=== PATIENT | female | born 1975 | race Caucasian/White ===

== ENCOUNTER 2021-12-27 09:54 | Outpatient (CLI) | payer MEDICARE, MEDICAID, SELFPAY | END 2021-12-27 09:55 | disposition home or self-care (01) | DX: H90.3 Sensorineural hearing loss, bilateral (principal) | CPT/HCPCS: 92557; 92567 ==

== ENCOUNTER 2025-01-06 07:59 | Outpatient (CLI) | payer MEDICARE, MEDICAID, SELFPAY | END 2025-01-06 08:00 | disposition home or self-care (01) | LOC: ANHBWCAUD 08:00 | DX: H61.23 Impacted cerumen, bilateral (principal); H74.8X1 Other specified disorders of right middle ear and mastoid | CPT/HCPCS: 92567 ==

== ENCOUNTER 2025-04-07 09:08 | Outpatient (CLI) | payer MEDICARE, MEDICAID, SELFPAY ==
--- OUTSIDE RECORDS SUMMARY | 2025-04-07 10:13 | XMS_ITS | Encounter Summary ---
Author Organization [facility] Address [address] [place] [address] Phone Care Team Providers Care Tie Knitter Helper Name Role Phone Jitendra Navarro MD Unavailable Guillermo Burnette MD Primary Care Provider Angelica Laughlin MD Unavailable [phone] Encounter Details Date Type Department Care Team (Late st Contact Info) Description 11/09/2021 [facility] 1 [place] [phone] Cornell Ge MD 4 [facility] [address] [place] [address] Encounter for screening for COVID-19 Social History Tobacco Use Types Packs/Day Years Used Date Smoking Tobacco: Never Assessed Comments No Sex and Gender Information Value Date Recorded Sex Assigned at Not on file Legal Sex Female 11:26 AM CDT Gender Identity Not on file Sexual Orientation Not on file documented as of this encounter Plan of Treatment Upcoming Encounters Date Type Department Care Team (Late st Contact Info) Description 09/30/2025 10:30 AM CDT Office Visit [facility] Medical Group - Ear, Nose & Throat - [place] [address] [place] [address] Angelica Laughlin MD #2 [facility] [place] [facility] [address] [place] [address] documented as of this encounter Procedures Procedure Name Priority Date/Time Associated Diagnosis Comments SARS-COV-2 BY MOLECULAR Routine 11/09/2021 8:15 AM CDT Encounter for screening for COVID-19 documented in this encounter Results * SARS-COV-2 BY MOLECULAR (11/09/2021 8:15 AM CDT) SARSCOV2 NOT DETECTED (Referen ce Range for this test is Not Detected ) [facility] THERMOFISHER FAST DX 11/10/2021 12:49 AM CDT [facility] Comment:This test was perfor med by a RT-PCR method. Other Venipuncture / Unknown 11/09/2021 8:15 AM CDT 11/09/2021 12:52 PM CDT Narrative [facility] - 11/10/2021 12:49 AM CDT Authorized Fact Sheets about this test for providers and patients are available at: https://www.fda.gov/medical-devices/yxdisdftk-gkykqdkoci-ixivgmc-devices/emergen cy-us e-authorizations us Cornell Ge MD MICROBIOLOGY - GENERAL ORDERAB LES Final Result [facility] [address] [place] [address], documented in this encounter Visit Diagnoses Diagnosis Encounter for screening for COVID-19 documented in this encounter Additional Health Concerns Infection Onset Date Last Indicated Resolved Time COVID - 19 10/19/2021 11/23/2021 11/24/2021 6:49 AM CDT COVID - 19 Confirmed 11/23/2021 11/23/202112/13/ 022 12:16 AM CDT COVID - 19 02/22/2022 03/08/2022 03/18/2022 12:1 6 AM CDT documented as of this encounter Care Teams Tie Knitter Helper Relationship Specialty Start Date End Date Guillermo Burnette MD [address] [place] [address] PCP - General Internal Medicine 05/05/20 Jitendra Navarro MD Consulting Physician Neurology 03/23/16 04/24/24 Angelica Laughlin MD #2 [facility] [address] [phone] Consulting Physician Otolaryngology 04/01/25 documented as of this encounter
--- OUTSIDE RECORDS SUMMARY | 2025-04-07 10:13 | XMS_ITS | Encounter Summary ---
Author Organization [facility] Address [address] [place] [address] Phone Care Team Providers Care Gang Boss Name Role Phone Jitenrda Navarro MD Unavailable Guillermo Burnetet MD Primary Care Provider Angelica Laughlin MD Unavailable [phone] Encounter Details Date Type Department Care Team (Late st Contact Info) Description 04/06/2021 [facility] 1 [place] [phone] Cornell Ge MD 4 [facility] [address] [facility] [address] Social History Tobacco Use Types Packs/Day Years [...] Description 09/30/2025 10:30 AM CDT Office Visit [facility] Medical Group - Ear, Nose & Throat - [place] [address] [place] [address] Angelica Laughlin MD #2 [facility] [address] [facility] [address] [place] [phone] documented as of this encounter Procedures Procedure Name Priority Date/Time Associated Diagnosis Comments SARS-COV-2 BY MOLECULAR Routine 04/06/2021 8:11 AM CDT documented in this encounter Results * SARS-COV-2 BY MOLECULAR (04/06/2021 8:11 AM CDT) SARSCOV2 NOT DETECTED (Referen ce Range for this test is Not Detected ) [facility] THERMOFISHER FAST DX 04/06/2021 5:44 PM CDT [facility] Comment:This test was perfor med by a RT-PCR method. Other Non-Phlebotomy Collection / Unknown 04/06/2021 8:11 AM CDT 04/06/2021 10:52 AM CDT Narrative [facility] - 04/06/2021 5:44 PM CDT Authorized Fact Sheets about this test for providers and patients are available at: https://www.fda.gov/medical-devices/lnqtagztx-rwzaccytco-fkoaeif-devices/emergen -us e-authorizations us Cornell Ge MD MICROBIOLOGY - GENERAL ORDERAB LES Final Result [facility] [address] [place] [address], documented in this encounter Visit Diagnoses Not on filedocumented in this encounter Additional Health Concerns Infection Onset Date Last Indicated Resolved Time COVID - 19 03/09/2021 05/25/2021 06/14/2021 12:1 6 AM NUCLEAR PHYSICIAN COVID - 19 06/29/2021 09/14/2021 10/04/2021 12:1 6 AM CDT COVID - 19 10/19/2021 11/23/2021 11/24/2021 6:49 AM CDT COVID - 19 Confirmed 11/23/2021 11/23/2021 022 12:16 AM CDT COVID - 19 02/22/2022 03/08/2022 03/18/2022 12:1 6 AM CDT documented as of this encounter Care Teams Gang Boss Relationship Specialty Start Date End Date Guillermo Burnette MD [address] [facility] [address] [place] [address] PCP - General Internal Medicine 05/05/20 Jitendra Navarro MD Consulting Physician Neurology 03/23/16 04/24/24 Angelica Laughlin MD #[address] [address] Consulting Physician Otolaryngology 04/01/25 documented as of this encounter
--- OUTSIDE RECORDS SUMMARY | 2025-04-07 10:13 | XMS_ITS | Encounter Summary ---
Author Organization [facility] Address [address] [place] [address] Phone Care Team Providers Care Quality Assurance Calibrator Name Role Phone Guillermo Burnette MD Primary Care Provider [phone] Angelica Laughlin MD Unavailable [phone] Encounter Details Date Type Department Care Team (Late Contact Info) Description 11/19/2024 [facility] 1 [place] [address] Guillermo Burnette MD [address] [facility] [address] [place] [address] Hypothyroidism, unspecified; Mild intellectual disabilities; Major depressive disorder, single episode, unspecified Social History Tobacco Use Types Packs/Day Years Used Date Smoking Tobacco: Never Smokeless Tobacco: Never Alcohol Use Standard Drinks/Week Comments Never 0 (1 standard drink = 0.6 oz pur e alcohol) Sexually Active Control Partners Comments Never Comments No Sex and Gender Information Value Date Recorded Sex Assigned at Not on file Legal Sex Female 11:26 AM CDT Gender Identity Not on file Sexual Orientation Not on file documented as of this encounter Plan of Treatment Upcoming Encounters Date Type Department Care Team (Late Contact Info) Description 09/30/2025 10:30 AM CDT Office Visit [facility] Medical Group - Ear, Nose & Throat - [place] #[address] [place] [address] Angelica Laughlin MD #[address] [phone] documented as of this encounter Procedures Procedure Name Priority Date/Time Associated Diagnosis Comments VITAMIN D, 25 HYDROXY TOTAL Routine 11/19/2024 6:35 AM CDT Hypothyroidism, unspecified Mild intellectual disabilities Major depressive disorder, single episode, unspecified CBC WITH AUTO DIFFERENTIAL Routine 11/19/2024 6:35 AM CDT Hypothyroidism, unspecified Mild intellectual disabilities Major depressive disorder, single episode, unspecified THYROXINE (T4) TOTAL Routine 11/19/2024 6:35 AM CDT Hypothyroidism, unspecified Mild intellectual disabilities Major depressive disorder, single episode, unspecified THYROID STIMULATING HORMONE (TSH) Routine 11/19/2024 6:35 AM CDT Hypothyroidism, unspecified Mild intellectual disabilities Major depressive disorder, single episode, unspecified LIPID PANEL Routine 11/19/2024 6:35 AM CDT Hypothyroidism, unspecified Mild intellectual disabilities Major depressive disorder, single episode, unspecified CMP (COMPREHENSIVE METABOLIC PANEL) Routine 11/19/2024 6:35 AM CDT Hypothyroidism, unspecified Mild intellectual disabilities Major depressive disorder, single episode, unspecified COMPLETE BLOOD COUNT (CBC) WITH DIFF Routine 11/19/2024 6:35 AM CDT Hypothyroidism, unspecified Mild intellectual disabilities Major depressive disorder, single episode, unspecified documented in this encounter Results * (ABNORMAL) CBC WITH AUTO DIFFERENTIAL (11/19/2024 6:35 AM CDT) WBC 8.39 4.00 - 12.00 10(3)/mcL 11/19/2024 7:58 AM CDT [facility] RBC 4.79 3.80 - 5.30 10(6)/mcL 11/19/2024 7:58 AM CDT [facility] HEMOGLOBIN (HGB) 14.7 12.0 - 15.8 g/dL 11/19/2024 7:58 AM CDT [facility] HEMATOCRIT (HCT) 44.5 36.0 - 47.0 % 11/19/2024 7:58 AM CDT [facility] MCV 92.9 82.0 - 96.0 fL 11/19/2024 7:58 AM CDT [facility] MCH 30.7 26.0 - 34.0 pg 11/19/2024 7:58 AM CDT [facility] MCHC 33.0 31.0 - 36.0 g/dL 11/19/2024 7:58 AM CDT [facility] PLATELET COUNT 245 140 - 440 10(3)/mcL 11/19/2024 7:58 AM CDT [facility] RDW 10.8(L) 11.8 - 15.5 % 11/19/2024 7:58 AM CDT [facility] MPV 12.4 9.7 - 12.4 fL 11/19/2024 7:58 AM CDT [facility] NEUTROPHILS 56.6 47.0 - 73.0 % 11/19/2024 7:58 AM CDT [facility] LYMPHOCYTES 33.7 18.0 - 42.0 % 11/19/2024 7:58 AM CDT [facility] MONOCYTES 7.4 4.0 - 12.0 % 11/19/2024 7:58 AM CDT [facility] EOSINOPHILS 1.7 0.0 - 5.0 % 11/19/2024 7:58 AM CDT [facility] BASOPHILS 0.6 0.0 - 1.0 % 11/19/2024 7:58 AM CDT [facility] ABSOLUTE NEUTROPHILS 4.75 1.60 - 7.70 10(3)/mcL 11/19/2024 7:58 AM CDT [facility] ABSOLUTE LYMPHOCYTES 2.83 1.30 - 3.20 10(3)/mcL 11/19/2024 7:58 AM CDT [facility] ABSOLUTE MONOCYTES 0.62 0.20 - 1.00 10(3)/mcL 11/19/2024 7:58 AM CDT [facility] ABSOLUTE EOSINOPHIL 0.14 0.00 - 0.40 10(3)/mcL 11/19/2024 7:58 AM CDT [facility] ABSOLUTE BASOPHILS 0.05 0.00 - 0.10 10(3)/mcL 11/19/2024 7:58 AM CDT [facility] NRBC PER 100 WBC 0 11/20/19 25 7:58 AM CDT [facility] Blood Venipuncture / Unknown 11/19/2024 6:35 AM CDT 11/19/2024 7:45 AM CDT us Guillermo Burnette MD HEMATOLOGY ORDERABLES Final Res ult [facility] #[address] [place] [address] * VITAMIN D, 25 HYDROXY TOTAL (11/19/2024 6:35 AM CDT) VITAMIN D, 25 HYDROX 23.1 ng/mL 11/19/2024 8:49 AM CDT [facility] Blood Venipuncture / Unknown 11/19/2024 6:35 AM CDT 11/19/2024 7:45 AM CDT Narrative [facility] - 11/19/2024 8:49 AM CDT Published reference ranges for Vitamin D vary depending on time and place and method of testing, and on patient's age, sex, ethnicity and levels of other measured analytes such as parathormone, calcium and phosphorus. The result should be evaluated in conjunction with clinical findings and suspicions. [place] [facility] Clinical Practice Guidelines: Status Vitamin D levels (ng/mL) Deficient <=20 At risk of inadequacy 21-29 Sufficient 30-100 Centers of Disease Control and Prevention Guidelines: Status Vitamin D levels (ng/mL) Deficient <13 At risk of inadequacy 13-19 Sufficient 20-50 Possibly harmful >50 References: [place] [facility], 2010 Dietary reference intakes for calcium and vitamin D. García [place]: The National Academies Press. Shy M, Noel N, Vlad GUTIERREZ, et al., Evaluation, treatment, and prevention of Vitamin D deficiency: an Endocrinology Clinical Practice Guideline. JCEM 2011 96: 7 1755-1015. Sonali Robertson, Filippo Kemp, Bhavik D, et al., Vitamin D Status: [place], 3298-8472, [facility] data brief, no. 59, MD Cristofer: [facility] for Health Statistics. 2011. Guillermo Burnette MD CHEMISTRY ORDERABLES Final Resu lt Performing Organization Address City/[facility] Co de Phone Number [facility] [address] [place] [address] * THYROID STIMULATING HORMONE (TSH) (11/19/2024 6:35 AM CDT) TSH 3.387 0.300 - 5.000 mIU/L 11/19/2024 8:54 AM CDT [facility] Blood Venipuncture / Unknown 11/19/2024 6:35 AM CDT 11/19/2024 7:45 AM CDT Guillermo Burnette MD CHEMISTRY ORDERABLES Final Resu lt Performing Organization Address [facility] Co de Phone Number [facility] [address] [place] [address] * THYROXINE (T4) TOTAL (11/19/2024 6:35 AM CDT) T4 7.7 5.0 - 13.0 mcg/dL 11/19/2024 8:54 AM CDT [facility] Blood Venipuncture / Unknown 11/19/2024 6:35 AM CDT 11/19/2024 7:45 AM CDT Guillermo Burnette MD CHEMISTRY ORDERABLES Final Resu lt Performing Organization Address City/[facility]/ZIP Co de Phone Number [facility] [address] [place] [address] * (ABNORMAL) LIPID PANEL (11/19/2024 6:35 AM CDT) CHOLESTEROL 197 <200 mg/dL 11/19/2024 8:36 AM CDT [facility] TRIGLYCERIDES 82 <150 mg/dL 11/19/2024 8:36 AM CDT [facility] HDL CHOLESTEROL 56 >40 mg/dL 8:36 AM CDT [facility] LDL 125 <130 mg/dL 11/19/2024 8:36 AM CDT [facility] VLDL 16 10 - 50 mg/dL 11/19/2024 8:36 AM CDT [facility] CHOL/HDL RATIO 3.5 0.0 - 4.4 11/19/2024 8:36 AM CDT [facility] NON-HDL CHOLESTEROL 141(H) <130 mg/dL 11/19/2024 8:36 AM CDT [facility] Blood Venipuncture / Unknown 11/19/2024 6:35 AM CDT 11/19/2024 7:45 AM CDT us Guillermo Burnette MD CHEMISTRY ORDERABLES Final Resu lt Performing Organization Address [facility]/ZIP Co de Phone Number [facility] [address] [place] [address] * (ABNORMAL) CMP (COMPREHENSIVE METABOLIC PANEL) (11/19/2024 6:35 AM CDT) SODIUM 140 136 - 145 mmol/L 11/19/2024 8:36 AM CDT [facility] POTASSIUM 4.2 3.5 - 5.1 mmol/L 11/19/2024 8:36 AM CDT [facility] CHLORIDE 107 98 - 107 mmol/L 11/19/2024 8:36 AM CDT [facility] CO2, VENOUS 23 22 - 30 mmol/L 11/19/2024 8:36 AM CDT [facility] ANION GAP 14.2 <18.0 mmol/L 11/19/2024 8:36 AM CDT [facility] GLUCOSE 86 70 - 99 mg/dL 11/19/2024 8:36 AM CDT [facility] BUN 15 5 - 18 mg/dL 11/19/2024 8:36 AM CDT [facility] CREATININE, BLOOD 0.67 0.60 - 1.00 mg/dL 11/19/2024 8:36 AM CDT [facility] BUN/CREATININE RATIO 22(H) 12 - 20 ratio 11/19/2024 8:36 AM T [facility] TOTAL PROTEIN 8.2(H) 6.0 - 8.0 g/dL 11/19/2024 8:36 AM CDT [facility] ALBUMIN 4.1 3.5 - 5.0 g/dL 11/19/2024 8:36 AM [facility] A/G RATIO 1.0 1.0 - 2.2 11/19/2024 8:36 AM T [facility] CALCIUM 9.1 8.7 - 10.5 mg/dL 11/19/2024 8:36 AM [facility] T BILI 0.5 0.2 - 1.2 mg/dL 11/19/2024 8:36 AM T [facility] SGOT (AST) 22 <43 U/L 11/19/2024 8:36 AM CDT [facility] SGPT (ALT) 17 <56 U/L 11/19/2024 8:36 AM T [facility] ALKALINE PHOSPHATASE 90 40 - 150 U/L 11/19/2024 8:36 AM [facility] GFR, ESTIMATED >60 >=60 11/19/2024 8:36 AM T [facility] Comment: Creatinine Clearance is the preferred criteria for selecting drug dose adjustments in renally impaired patients. The GFR is provided as additional pertinent clinical information. GFR is reported in mL/min/1.73 sq m. Calculation based on the Chronic Kidney Disease Epidemiology Collaboration (CKD- EPI) equation refit without adjustment for race. GFR, EST. >60 >=60 025 8:36 AM CDT [facility] GFR, EST. NONAFRICAN >60 >=60 11/19/2024 8:36 AM CDT [facility] Blood Venipuncture / Unknown 11/19/2024 6:35 AM CDT 11/19/2024 7:45 AM CDT us Guillermo Burnette MD CHEMISTRY ORDERABLES Final Resu lt [facility] [address] [place] [address] documented in this encounter Visit Diagnoses Diagnosis Hypothyroidism, unspecified Mild intellectual disabilities Major depressive disorder, single episode, unspecified documented in this encounter Care Teams Quality Assurance Calibrator Relationship Specialty Start Date End Date Guillermo Burnette MD [address] [facility] [address] [place] [address] PCP - General Internal Medicine 05/05/20 Angelica Laughlin MD #2 [facility] [address] [place] [address] Consulting Physician Otolaryngology 04/01/25 documented as of this encounter
--- OUTSIDE RECORDS SUMMARY | 2025-04-07 10:13 | XMS_ITS | Encounter Summary ---
Author Organization [facility] Address [address] [place] [address] Phone Care Team Providers Care Automatic Presser Name Role Phone Jitendra Navarro MD Unavailable Guillermo Burnette MD Primary Care Provider [phone] Angelica Laughlin MD Unavailable [phone] Encounter Details Date Type Department Care Team (Late st Contact Info) Description 05/25/2021 Lab Requisition [facility] Services 1 [place] [phone] Cornell Ge MD 4 [facility] [address] [place] [address] Encounter for screening for COVID-19 Social History [...] Description 09/30/2025 10:30 AM CDT Office Visit [facility] Medical Group - Ear, Nose & Throat - [place] [address] [place] [phone] Angelica Laughlin MD [address] [place] [place] [phone] documented as of this encounter Procedures Procedure Name Priority Date/Time Associated Diagnosis Comments SARS-COV-2 BY MOLECULAR Routine 05/25/2021 8:10 AM SENIOR MANAGER [employer] Encounter for screening for COVID-19 documented in this encounter Results * SARS-COV-2 BY MOLECULAR (05/25/2021 8:10 AM SENIOR MANAGER [employer]QU[employer]) SARSCOV2 NOT DETECTED (Referen ce Range for this test is Not Detected ) [facility] THERMOFISHER FAST DX 05/26/2021 5:59 PM SENIOR MANAGER [facility]QU[facility]ITIONS [facility] Comment:This test was perfor med by a RT-PCR method. Other No Phlebotomy Charged / Unknown 05/25/2021 8:10 AM SENIOR MANAGER [employer]ITION[employer] 05/25/2021 10:54 AM SENIOR MANAGER [employer]ITIONS Narrative [facility] 05/26/[facility]21 5:59 PM SENIOR MANAGER [employer]ITIONS Authorized Fact Sheets about this test for providers and patients are available at: https://www.fda.gov/medical-devices/qgbfwuwve-zzksyxsbfs-bcfjzpq-devices/emergen cy-us e-authorizations us Cornell Ge MD MICROBIOLOGY - GENERAL ORDERAB LES Final Result [facility] [address] [place] [address], documented in this encounter Visit Diagnoses Diagnosis Encounter for screening for COVID-19 documented in this encounter Additional Health Concerns Infection Onset Date Last Indicated Resolved Time COVID - 19 03/09/2021 05/25/2021 06/14/2021 12:1 6 AM SENIOR MANAGER [employer] COVID - 19 06/29/2021 09/14/2021 10/04/2021 12:1 6 AM CDT COVID - 19 10/19/2021 11/23/2021 11/24/2021 6:49 AM CDT COVID - 19 Confirmed 11/23/2021 11/23/2021 022 12:16 AM CDT COVID - 19 02/22/2022 03/08/2022 03/18/2022 12:1 6 AM CDT documented as of this encounter Care Teams Automatic Presser Relationship Specialty Start Date End Date Guillermo Burnette MD [address] [facility] [address] [place] [address] PCP - General Internal Medicine 05/05/20 Jitendra Navarro MD Consulting Physician Neurology 03/23/16 04/24/24 Angelica Laughlin MD #[address] [phone] Consulting Physician Otolaryngology 04/01/25 documented as of this encounter
--- OUTSIDE RECORDS SUMMARY | 2025-04-07 10:13 | XMS_ITS | Clinical Summary ---
Author Organization [facility] Address [address] [place] [address] Care Team Providers Care Senior Java Engineer Name Role Phone Guillermo Burnette MD Primary Care Provider [phone] Angelica Laughlin MD Unavailable [phone] Allergies No known active allergies Medications dextromethorph an-guaiFENesin (Robafen DM) 10-100 MG/5ML Syrup Take 10 mL by mouth every 4 hours as needed for Cough. 8 Active docusate sodium 100 MG Capsule Take 100 mg by mouth daily. 8 Active Multivitamin Tablet Take 1 Tablet by mouth daily. 4 Active Stimulant Laxative 8.6-50 MG Tablet Take 2 Tablets by mouth daily. 4 Active fluconazole (DIFLUCAN) 200 MG Tablet Fluconazole 200 MG Oral Tablet QTY: 0 tablet Days: 0 Refills: 0 Written: 10/18/21 Patient Instructions: once a month 2 Active acetaminophen (Tylenol) 325 MG Tablet Take 325 mg by mouth every 4 hours as needed for Mild or more severe pain or Fever. 8 Active magnesium hydroxide ([employer] Milk of Magnesia) 400 MG/5ML Suspension 30 mL every 72 hours as needed for Constipation - 1st line. 8 Active Neomycin-Bacit racin-Polymyxi n (HCA TRIPLE ANTIBIOTIC OINTMENT EX) by Apply externally route every 8 hours as needed for Other (skin wounds, max 3 doses daily). Active Phenylephrine- Mineral Oil-Pet (Hemorrhoidal) 0.25-14-74.9 % Ointment by Rectal route 2 times daily as needed for Other (hemorrhoids, max dose 2 in 24 hrs). Active apixaban (ELIQUIS) 5 MG Tablet 2 tab twice daily for 7 days, then 1 tablet twice daily 9 025 Discontin ued(Med List Clean Up) risperiDONE (RISPERDAL) 0.5 MG Tablet Take 0.5 mg by mouth. 025 Discontin ued(Med List Clean Up) guaiFENesin 200 MG/5ML Liquid take 5 milliliter (200MG) by oral route every 4 hours as needed 2 025 Discontin ued(Error ) Active Problems No known active problems Encounters Date Type Department Care Team Description 04/01/2025 10:45 AM CDT Office Visit [facility] - [place] [address] [place] [address] Angelica Laughlin MD Impacted cerumen of both ears (Primary Dx) Discharge Disposition: Discharged to home or Selfcare 04/01/2025 Travel from Last 3 Months Immunizations Immunization Administration Dates Next Due Covid-19, Mrna, Lnp-s, Pf, 30 Mcg/0.3 Ml Dose (P fizer) 04/22/2021 Social History Tobacco Use Types Packs/Day Years Used Date Smoking Tobacco: Never Smokeless Tobacco: Never Tobacco Cessation:Counseling Given: Not Answered Alcohol Use Standard Drinks/Week Comments Never 0 (1 standard drink = 0.6 oz pur e alcohol) Sexually Active Control Partners Comments Never Comments No Sex and Gender Information Value Date Recorded Sex Assigned at Not on file Legal Sex Female 11:26 AM CDT Gender Identity Not on file Sexual Orientation Not on file Last Filed Vital Signs Vital Sign Reading Time Taken Comments Blood Pressure 120/78 04/01/2025 10:53 AM CDT Pulse 60 04/01/2025 10:53 AM CDT Temperature 36.7 C (98 F) 04/01/2025 10:53 AM CDT Respiratory Rate 18 04/01/2025 10:53 AM CDT Oxygen Saturation 93% 04/01/2025 10:53 AM CDT Inhaled Oxygen Concentration - - Weight 76.2 kg (168 lb) 04/01/2025 10:53 AM CDT Height 160 cm (5' 3) 04/01/2025 10:53 AM CDT Body Mass Index 29.76 04/01/2025 10:53 AM CDT Plan of Treatment Upcoming Encounters Date Type Department Care Team (Late st Contact Info) Description 09/30/2025 10:30 AM CDT [facility] Visit [facility] - [place] [address] [address] Angelica Laughlin MD [address] [place] [address] [address] Health Maintenance Due Date Last Done Comments Hepatitis C Virus (HCV) Screening 1975 TdaP Immunization 1975 Pap Smear 1996 Medicare Initial AWV [id number] 02/16/1998 Cervical Cancer Screening (CCS) 2005 HPV/Cotest 2005 Hepatitis B Immunization (2 of 3 - 19+ 3-dose series) 02/28/2006 01/31/2006 Cologuard 2020 Immunochemical Fecal Occult Blood 2020 Influenza Immunization (#1) 02/16/202504/18, 05/01/2023, 03/30/2021, Additional history exists SARS-COV-2 Immunization ( season) 2025 04/22/2024, 04/22/2021, 08/20/2020, Additional history exists Mammogram 07/31/2025 07/31/2024, 07/19, 07/30/2023, Additional history exists Colonoscopy 08/11/2034 08/11/2024 Colorectal Cancer Screening 08/11/2034 Respiratory Syncytial Virus (RSV) Immunization (Adult) (1 - 1-dose 75+ series) 2050 DTaP/Tdap/Td Immunization Discontinued 01/31/2006, Pneumococcal Immunization Combined Aged Out 01/27/2011, 01/21/2006 No longer eligibl e based on patient's age to complete this topic Discussion re Starting/Frequency of Mammograms Completed 07/31/2024, 07/30/2023, 05/16/2021, Additional history exists Human Papillomavirus (HPV) Immunization Aged Out No longer eligible based on patient's age to complete this topic Meningococcal Immunization (ACWY) Aged Out No longer eligible based on patient's age to complete this topic Rotavirus Immunization Aged Out No lo nger eligible based on patient's age to complete this topic Procedures Procedure Name Priority Date/Time Associated Diagnosis Comments REMOVE IMPACTED EAR WAX VIA INSTRUMENT BILAT Routine 04/01/2025 10:45 AM CDT Impacted cerumen of both ears ZOEY SCREENING BILATERAL DIGITAL W CAD Routine 07/31/2024 9:14 AM TEMPLATE FITTER Breast cancer screening by mammogram from Last 3 Months or Most Recently Relevant to Health Maintenance Results * REMOVE IMPACTED EAR WAX VIA INSTRUMENT BILAT (04/01/2025 10:45 AM CDT) Narrative Angelica Laughlin MD - 04/01/2025 10:45 AM CDT Angelica Laughlin MD 04/01/2025 11:17 AM PROCEDURE PERFORMED: Removal of bilateral Impacted Cerumen Risks, benefits and alternatives were discussed with the patient. Specific risks include irritation of the canal, bleeding, infection or need for additional procedures. Benefits include improvement of ear canal obstruction, and alternative includes observation or vnpi-odj-oniamch remedies at home if they are candidate. After obtaining informed consent, the patient was placed in a semi-reclining position in the exam chair. The operative otoscope was used to visualize the both ear canals . Impacted/obstructing cerumen was noted in both sides . Cerumen removal was accomplished using suction The left tympanic membrane was visualized and noted to be intact and normal. The right tympanic membrane was visualized and noted to be intact and normal. The patient tolerated this well without complications. Angelica Laughlin MD PROCEDURE/MINOR SURGICAL ORDERA BLES Final Result * ZOEY SCREENING BILATERAL DIGITAL W CAD (07/31/2024 9:14 AM TEMPLATE FITTER) Anatomical Region Laterality Modality breast Bilateral Mammography 07/31/2024 9:25 AM TEMPLATE FITTER Narrative 08/01/2024 1:17 PM TEMPLATE FITTER - OZEY SCREENING BILATERAL DIGITAL W CAD BILATERAL DIGITAL SCREENING MAMMOGRAM WITH CAD WITH MEDIOLATERAL OBLIQUE CRANIOCAUDAL: 07/31/2024 The study was acquired using digital technology and interpreted from soft copy. Current study was also evaluated with ICAD version 7.2. CLINICAL: Routine screening. Patient has no complaints. Patient is from a alf. Exam performed in 2D due to patient tremors. No personal history of cancer. Family history of breast cancer unknown. COMPARISONS: Comparison is made to exams dated: 05/05/2020, 05/16/2021, and 07/30/2023 [facility]. BREAST TISSUE:There are scattered areas of fibroglandular density. FINDINGS: No significant masses, calcifications, or other findings are seen in either breast. There has been no significant interval change. IMPRESSION: NEGATIVE There is no mammographic evidence of malignancy. A 1 year screening mammogram is recommended. A letter will be sent to the patient with these results. The patient will be entered into a reminder system with a target due date of 1 year for her next screening exam. Electronically signed by: Lizbet sam/chris:07/31/2024 17:15:35 Parachute Supervisor(s): RT Trisha(R)(M), [facility] letter sent: Normal Exam Reading location: [place] Mammogram BI-RADS: Category 1: Negative Procedure Note Lizbet Bell MD - 08/01/2024 - ZOEY SCREENING BILATERAL DIGITAL W CAD BILATERAL DIGITAL SCREENING MAMMOGRAM WITH CAD WITH MEDIOLATERAL OBLIQUE CRANIOCAUDAL: 07/31/2024 The study was acquired using digital technology and interpreted from soft copy. Current study was also evaluated with ICAD version 7.2. CLINICAL: Routine screening. Patient has no complaints. Patient is from a alf. Exam performed in 2D due to patient tremors. No personal history of cancer. Family history of breast cancer unknown. COMPARISONS: Comparison is made to exams dated: 05/05/2020, 05/16/2021, and 07/30/2023 [facility]. BREAST TISSUE:There are scattered areas of fibroglandular density. FINDINGS: No significant masses, calcifications, or other findings are seen in either breast. There has been no significant interval change. IMPRESSION: NEGATIVE There is no mammographic evidence of malignancy. A 1 year screening mammogram is recommended. A letter will be sent to the patient with these results. The patient will be entered into a reminder system with a target due date of 1 year for her next screening exam. Electronically signed by: Lizbet sam/chris:07/31/2024 17:15:35 Parachute Supervisor(s): India Wise RT(R)(M), [facility] letter sent: Normal Exam Reading location: [place] Mammogram BI-RADS: Category 1: Negative us Guillermo Burnette MD IMG MAMMO ORDERABLES Final Resu lt from Last 3 Months or Most Recently Relevant to Health Maintenance Insurance MEDICARE [place]ICAID [place] Care Teams Senior Java Engineer Relationship Specialty Start Date End Date Guillermo Burnette MD [address] [place] [address] PCP - General Internal Medicine 05/05/20 Angelica Laughlin MD [address]2 [facility] [address] [place] [phone] Consulting Physician Otolaryngology 04/01/25
--- OUTSIDE RECORDS SUMMARY | 2025-04-07 10:13 | XMS_ITS | Encounter Summary ---
Author Organization [facility] Address [address] [place] [address] Phone Care Team Providers Care Jackaroo Name Role Phone Jitendra Navarro MD Unavailable Guillermo Burnette MD Primary Care Provider [phone] Angelica Laughlin MD Unavailable [phone] Encounter Details Date Type Department Care Team (Late st Contact Info) Description 03/16/2021 [facility] [address] [place] [phone] Cornell Ge MD 4 [facility] [address] [place] [address] Encounter for screening for COVID-19 Social History [...] Description 09/30/2025 10:30 AM CDT Office Visit [facility] - Ear, Nose & Throat - [place] [address] [place] [address] Angelica Laughlin MD #2 [facility] [address] [place] [phone] documented as of this encounter Procedures Procedure Name Priority Date/Time Associated Diagnosis Comments SARS-COV-2 BY MOLECULAR Routine 03/16/2021 7:20 AM CDT Encounter for screening for COVID-19 documented in this encounter Results * SARS-COV-2 BY MOLECULAR (03/16/2021 7:20 AM CDT) SARSCOV2 NOT DETECTED (Referen ce Range for this test is Not Detected ) [facility] THERMOFISHER FAST DX 03/17/2021 5:10 AM CDT [facility] Comment:This test was perfor med by a RT-PCR method. Other No Phlebotomy Charged / Unknown 03/16/2021 7:20 AM CDT 03/16/2021 10:56 AM CDT Narrative [facility] - 03/17/2021 5:10 AM CDT Authorized Fact Sheets about this test for providers and patients are available at: https://www.fda.gov/medical-devices/rsetqrion-evihktqgrt-qqzmkzu-devices/emergen cy-us e-authorizations us Cornell Ge MD MICROBIOLOGY - GENERAL ORDERAB LES Final Result [facility] [address] [place] [address], documented in this encounter Visit Diagnoses Diagnosis Encounter for screening for COVID-19 documented in this encounter Additional Health Concerns Infection Onset Date Last Indicated Resolved Time COVID - 19 03/09/2021 05/25/2021 06/14/2021 12:1 6 AM GROUP SALES REPRESENTATIVE COVID - 19 06/29/2021 09/14/2021 10/04/2021 12:1 6 AM CDT COVID - 19 10/19/2021 11/23/2021 11/24/2021 6:49 AM CDT COVID - 19 Confirmed 11/23/2021 11/23/2021 022 12:16 AM CDT COVID - 19 02/22/2022 03/08/2022 03/18/2022 12:1 6 AM CDT documented as of this encounter Care Teams Jackaroo Relationship Specialty Start Date End Date Guillermo Burnette MD [address] [facility] [address] [place] [address] PCP - General Internal Medicine 05/05/20 Jitendra Navarro MD Consulting Physician Neurology 03/23/16 04/24/24 Angelica Laughlin MD [address] [phone] Consulting Physician Otolaryngology 04/01/25 documented as of this encounter
--- OUTSIDE RECORDS SUMMARY | 2025-04-07 10:13 | XMS_ITS | Encounter Summary ---
Author Organization [facility] Address [address] [place] [address] Phone Care Team Providers Care Computer Assembler Name Role Phone Jitendra Navarro MD Unavailable [phone] Guillermo Burnette MD Primary Care Provider [phone] Angelica Laughlin MD Unavailable [phone] Encounter Details Date Type Department Care Team (Late st Contact Info) Description 09/07/2021 [facility] 1 [place] [phone] Cornell Ge MD 4 [facility] [address] [place] [address] Encounter for screening for COVID-19 Social History [...] Description 09/30/2025 10:30 AM CDT Office Visit [facility] Medical Group - Ear, Nose & Throat - [place] [address] [place] [address] Angelica Laughlin MD #2 [facility] [address] [place] [phone] documented as of this encounter Procedures Procedure Name Priority Date/Time Associated Diagnosis Comments SARS-COV-2 BY MOLECULAR Routine 09/07/2021 7:19 AM CDT Encounter for screening for COVID-19 documented in this encounter Results * SARS-COV-2 BY MOLECULAR (09/07/2021 7:19 AM CDT) SARSCOV2 NOT DETECTED (Referen ce Range for this test is Not Detected ) [facility] THERMOFISHER FAST DX 09/08/2021 12:07 AM CDT [facility] Comment:This test was perfor med by a RT-PCR method. Other Non-Phlebotomy Collection / Unknown 09/07/2021 7:19 AM CDT 09/07/2021 12:45 PM CDT Narrative [facility] - 09/08/2021 12:07 AM CDT Authorized Fact Sheets about this test for providers and patients are available at: https://www.fda.gov/medical-devices/yjqiapbdo-srarfguxpe-ngeagph-devices/emergen cy-us e-authorizations us Cornell Ge MD MICROBIOLOGY - GENERAL ORDERAB LES Final Result [facility] [address] [facility] [place] [id number], documented in this encounter Visit Diagnoses Diagnosis Encounter for screening for COVID-19 documented in this encounter Additional Health Concerns Infection Onset Date Last Indicated Resolved Time COVID - 19 06/29/2021 09/14/2021 10/04/2021 12:1 6 AM CDT COVID - 19 10/19/2021 11/23/2021 11/24/2021 6:49 AM CDT COVID - 19 Confirmed 11/23/2021 11/23/2021 022 12:16 AM CDT COVID - 19 02/22/2022 03/08/2022 03/18/2022 12:1 6 AM CDT documented as of this encounter Care Teams Computer Assembler Relationship Specialty Start Date End Date Guillermo Burnette MD [address] [place] [address] PCP - General Internal Medicine 05/05/20 Jitendra Navarro MD Consulting Physician Neurology 03/23/16 04/24/24 Angelica Laughlin MD #[address] [address] Consulting Physician Otolaryngology 04/01/25 documented as of this encounter
--- OUTSIDE RECORDS SUMMARY | 2025-04-07 10:13 | XMS_ITS | Encounter Summary ---
Author Organization [facility] Address [address] [place] [address] Phone Care Team Providers Care Inflated Pad Buffer Name Role Phone Jitendra Navarro MD Unavailable Guillermo Burnette MD Primary Care Provider Angelica Laughlin MD Unavailable [phone] Encounter Details Date Type Department Care Team (Late st Contact Info) Description 03/08/2022 [facility] [address] [place] [phone] Cornell Ge MD 4 [facility] [address] [place] [address] Encounter for screening for COVID-19 Social History [...] Description 09/30/2025 10:30 AM CDT Office Visit [facility] Medical Group - Ear, Nose & Throat - [place] [address] [place] [address] Angelica Laughlin MD #2 [facility] [address] [place] [address] documented as of this encounter Procedures Procedure Name Priority Date/Time Associated Diagnosis Comments SARS-COV-2 BY MOLECULAR Routine 03/08/2022 7:42 AM CDT Encounter for screening for COVID-19 documented in this encounter Results * SARS-COV-2 BY MOLECULAR (03/08/2022 7:42 AM CDT) SARSCOV2 NOT DETECTED (Referen ce Range for this test is Not Detected ) [facility] THERMOFISHER FAST DX 03/09/2022 10:24 AM CDT [facility] Comment:This test was perfor med by a RT-PCR method. Other Non-Phlebotomy Collection / Unknown 03/08/2022 7:42 AM CDT 03/08/2022 11:18 AM CDT Narrative [facility] - 03/09/2022 10:24 AM CDT Authorized Fact Sheets about this test for providers and patients are available at: https://www.fda.gov/medical-devices/gmewscxmv-vadgtcetbn-wfqdyll-devices/emergen cy-us e-authorizations us Cornell Ge MD MICROBIOLOGY - GENERAL ORDERAB LES Final Result [facility] [address] [place] [address], documented in this encounter Visit Diagnoses Diagnosis Encounter for screening for COVID-19 documented in this encounter Additional Health Concerns Infection Onset Date Last Indicated Resolved Time COVID - 19 02/22/2022 03/08/2022 03/18/2022 12:1 6 AM CDT documented as of this encounter Care Teams Inflated Pad Buffer Relationship Specialty Start Date End Date Guillermo Burnette MD [address] [facility] [address] [place] [address] PCP - General Internal Medicine 05/05/20 Jitendra Navarro MD Consulting Physician Neurology 03/23/16 04/24/24 Angelica Laughlin MD #[address] [facility] [address] Consulting Physician Otolaryngology 04/01/25 documented as of this encounter
--- OUTSIDE RECORDS SUMMARY | 2025-04-07 10:13 | XMS_ITS | Encounter Summary ---
Author Organization [facility] Address [address] [place] [address] Phone Care Team Providers Care Screen Tender Name Role Phone Jitendra Navarro MD Unavailable Guillermo Burnette MD Primary Care Provider [phone] Angelica Laughlin MD Unavailable [phone] Encounter Details Date Type Department Care Team (Late st Contact Info) Description 11/02/2021 [facility] [address] [place] [phone] Cornell Ge MD 4 [facility] [address] [place] [address] Encounter for screening for COVID-19 Social History [...] Description 09/30/2025 10:30 AM CDT Office Visit [facility] - Ear, Nose & Throat - [place] [address] [place] [address] Angelica Laughlin MD #2 [facility] [address] [place] [phone] documented as of this encounter Procedures Procedure Name Priority Date/Time Associated Diagnosis Comments SARS-COV-2 BY MOLECULAR Routine 11/02/2021 8:15 AM CDT Encounter for screening for COVID-19 documented in this encounter Results * SARS-COV-2 BY MOLECULAR (11/02/2021 8:15 AM CDT) SARSCOV2 NOT DETECTED (Referen ce Range for this test is Not Detected ) [facility] THERMOFISHER FAST DX 11/03/2021 6:32 PM CDT [facility] Comment:This test was perfor med by a RT-PCR method. Other Non-Phlebotomy Collection / Unknown 11/02/2021 8:15 AM CDT 11/02/2021 10:52 AM CDT Narrative [facility] - 11/03/2021 6:32 PM CDT Authorized Fact Sheets about this test for providers and patients are available at: https://www.fda.gov/medical-devices/cnawyhgim-eovhkeygly-jtczoas-devices/emergen cy-us e-authorizations us Cornell Ge MD MICROBIOLOGY - GENERAL ORDERAB LES Final Result [facility] [address] [place] [address], documented in this encounter Visit Diagnoses Diagnosis Encounter for screening for COVID-19 documented in this encounter Additional Health Concerns Infection Onset Date Last Indicated Resolved Time COVID - 19 10/19/2021 11/23/2021 11/24/2021 6:49 AM CDT COVID - 19 Confirmed 11/23/2021 11/23/202112/13/ 022 12:16 AM CDT COVID - 19 02/22/2022 03/08/2022 03/18/2022 12:1 6 AM CDT documented as of this encounter Care Teams Screen Tender Relationship Specialty Start Date End Date Guillermo Burnette MD [address] [place] [address] PCP - General Internal Medicine 05/05/20 Jitendra Navarro MD Consulting Physician Neurology 03/23/16 04/24/24 Angelica Laughlin MD #2 [facility] [address] [address] Consulting Physician Otolaryngology 04/01/25 documented as of this encounter
--- OUTSIDE RECORDS SUMMARY | 2025-04-07 10:13 | XMS_ITS | Encounter Summary ---
Author Organization [facility] Address [address] [place] [address] Phone Care Team Providers Care Taping Foreman Name Role Phone Jitendra Navarro MD Unavailable Guillermo Burnette MD Primary Care Provider Angelica Laughlin MD Unavailable [phone] Encounter Details Date Type Department Care Team (Late st Contact Info) Description 02/22/[facility] 1 [place] [address] Cornell Ge MD 4 [facility] [address] [place] [address] Encounter for screening for COVID-19 Social History [...] Description 09/30/2025 10:30 AM CDT Office Visit [facility] Medical Group - Ear, Nose & Throat - [place] [address] [place] [address] Angelica Laughlin MD [address] [place] [facility] [address] [place] [address] documented as of this encounter Procedures Procedure Name Priority Date/Time Associated Diagnosis Comments SARS-COV-2 BY MOLECULAR Routine 02/22/2022 7:41 AM CDT Encounter for screening for COVID-19 documented in this encounter Results * SARS-COV-2 BY MOLECULAR (02/22/2022 7:41 AM CDT) SARSCOV2 NOT DETECTED (Referen ce Range for this test is Not Detected ) [facility] THERMOFISHER FAST DX 02/23/2022 8:21 AM CDT [facility] Comment:This test was perfor med by a RT-PCR method. Other COVID 19 Home Health/ Intermediate Facility Collection / Unknown 02/22/2022 7:41 AM CDT 02/22/2022 1:26 PM CDT Narrative [facility] - 02/23/2022 8:21 AM CDT Authorized Fact Sheets about this test for providers and patients are available at: https://www.fda.gov/medical-devices/myszunvkt-ysnbgkvdvf-yajxjxh-devices/emergen -us e-authorizations us Cornell Ge MD MICROBIOLOGY - GENERAL ORDERAB LES Final Result Performing Organization Address City/State/[facility] Co de Phone Number [facility] [address] [place] [address], documented in this encounter Visit Diagnoses Diagnosis Encounter for screening for COVID-19 documented in this encounter Additional Health Concerns Infection Onset Date Last Indicated Resolved Time COVID - 19 02/22/2022 03/08/2022 03/18/2022 12:1 6 AM CDT documented as of this encounter Care Teams Taping Foreman Relationship Specialty Start Date End Date Guillermo Burnette MD [address] [facility] [address] [place] [address] PCP - General Internal Medicine 05/05/20 Jitendra Navarro MD Consulting Physician Neurology 03/23/16 04/24/24 Angelica Laughlin MD #2 [facility] [address] Consulting Physician Otolaryngology 04/01/25 documented as of this encounter
--- OUTSIDE RECORDS SUMMARY | 2025-04-07 10:13 | XMS_ITS | Encounter Summary ---
Author Organization [facility] Address [address] [place] [address] Phone Care Team Providers Care Costumed Character Entertainer Name Role Phone Jitendra Navarro MD Unavailable Guillermo Burnette MD Primary Care Provider Angelica Laughlin MD Unavailable [phone] Encounter Details Date Type Department Care Team (Late st Contact Info) Description 03/23/[facility]21 [facility] 1 [place] [address] Cornell Ge MD 4 [facility] [address] [place] [address] Social History Tobacco Use Types Packs/Day Years [...] Description 09/30/2025 10:30 AM CDT Office Visit [facility] Medical Group - Ear, Nose & Throat - [place] [address] [place] [address] Angelica Laughlin MD #2 [facility] [place] [facility] [address] [place] [address] documented as of this encounter Procedures Procedure Name Priority Date/Time Associated Diagnosis Comments SARS-COV-2 BY MOLECULAR Routine 03/23/2021 8:24 AM CDT documented in this encounter Results * SARS-COV-2 BY MOLECULAR (03/23/2021 8:24 AM CDT) SARSCOV2 NOT DETECTED (Referen ce Range for this test is Not Detected ) [facility] THERMOFISHER FAST DX 03/24/2021 6:22 AM CDT [facility] Comment:This test was perfor med by a RT-PCR method. Other Non-Phlebotomy Collection / Unknown 03/23/2021 8:24 AM CDT 03/23/2021 10:35 AM CDT Narrative [facility] - 03/24/2021 6:22 AM CDT Authorized Fact Sheets about this test for providers and patients are available at: https://www.fda.gov/medical-devices/tbjkvtzez-cabxhkoxsx-qofvdml-devices/emergen -us e-authorizations us Cornell Ge MD MICROBIOLOGY - GENERAL ORDERAB LES Final Result [facility] [address] [place] [address], documented in this encounter Visit Diagnoses Not on filedocumented in this encounter Additional Health Concerns Infection Onset Date Last Indicated Resolved Time COVID - 19 03/09/2021 05/25/2021 06/14/2021 12:1 6 AM GAMING SURVEILLANCE OBSERVER COVID - 19 06/29/2021 09/14/2021 10/04/2021 12:1 6 AM CDT COVID - 19 10/19/2021 11/23/2021 11/24/2021 6:49 AM CDT COVID - 19 Confirmed 11/23/2021 11/23/2021 022 12:16 AM CDT COVID - 19 02/22/2022 03/08/2022 03/18/2022 12:1 6 AM CDT documented as of this encounter Care Teams Costumed Character Entertainer Relationship Specialty Start Date End Date Guillermo Bunrette MD [address] [facility] [address] [place] [address] PCP - General Internal Medicine 05/05/20 Jitendra Navarro MD Consulting Physician Neurology 03/23/16 04/24/24 Angelica Laughlin MD #[address] [address] Consulting Physician Otolaryngology 04/01/25 documented as of this encounter
--- OUTSIDE RECORDS SUMMARY | 2025-04-07 10:13 | XMS_ITS | Encounter Summary ---
Author Organization [facility] Address [address] [place] [address] Phone Care Team Providers Care Venetian Blind Washer Name Role Phone Jitendra Navarro MD Unavailable Guillermo Burnette MD Primary Care Provider Angelica Laughlin MD Unavailable [phone] Encounter Details Date Type Department Care Team (Late st Contact Info) Description 04/23/2024 [facility] 1 [place] [address] Guillermo Burnette MD [address] [address] Vitamin D deficiency, unspecified Social History Tobacco Use Types Packs/Day [...] Description 09/30/2025 10:30 AM CDT [facility] & [facility]at - [place] #2 [place] [address] Angelica Laughlin MD [address] [place] [address] documented as of this encounter Procedures Procedure Name Priority Date/Time Associated Diagnosis Comments VITAMIN D, 25 HYDROXY TOTAL Routine 04/23/2024 7:56 AM POSTING MACHINE OPERATOR Vitamin D deficiency, unspecified documented in this encounter Results * VITAMIN D, 25 HYDROXY TOTAL (04/23/2024 7:56 AM POSTING MACHINE OPERATOR) VITAMIN D, 25 HYDROX 19.9 ng/mL 04/23/2024 10:16 AM POSTING MACHINE OPERATOR [facility] Blood Venipuncture / Unknown 04/23/2024 7:56 AM POSTING MACHINE OPERATOR 04/23/2024 9:16 AM POSTING MACHINE OPERATOR Narrative [facility] - 04/23/2024 10:16 AM POSTING MACHINE OPERATOR Published reference ranges for Vitamin D vary depending on time and place and method of testing, and on patient's age, sex, ethnicity and levels of other measured analytes such as parathormone, calcium and phosphorus. The result should be evaluated in conjunction with clinical findings and suspicions. [facility] [employer] and [employer] Clinical Practice Guidelines: Status Vitamin D levels (ng/mL) Deficient <=20 At risk of inadequacy 21-29 Sufficient 30-100 Centers of Disease Control and Prevention Guidelines: Status Vitamin D levels (ng/mL) Deficient <13 At risk of inadequacy 13-19 Sufficient 20-50 Possibly harmful >50 References: [employer], 2010 Dietary reference intakes for calcium and vitamin D. [place]ía [place]: The National Academies Press. Shy M, Noel N, Vlad GUTIERREZ, et al., Evaluation, treatment, and prevention of Vitamin D deficiency: an Endocrinology Clinical Practice Guideline. JCEM 2011 96: 7 3364-0245. Sonali A, Filippo C, Bhavik D, et al., Vitamin D Status: [place], 4816-1024, NYHS data brief, no. 59, MD Cristof[place]: National Center for Health Statistics. 2011. us Guillermo Burnette MD CHEMISTRY ORDERABLES Final Resu lt [facility] [address] [place] [address] documented in this encounter Visit Diagnoses Diagnosis Vitamin D deficiency, unspecified documented in this encounter Care Teams Venetian Blind Washer Relationship Specialty Start Date End Date Guillermo Burnette MD [address] [facility] [address] [place] [address] PCP - General Internal Medicine 05/05/20 Jitendra Navarro MD Consulting Physician Neurology 03/23/16 04/24/24 Angelica Laughlin MD [address] [facility] [address] [place] [address] Consulting Physician Otolaryngology 04/01/25 documented as of this encounter
--- OUTSIDE RECORDS SUMMARY | 2025-04-07 10:13 | XMS_ITS | Encounter Summary ---
Author Organization [facility] Address [address] [place] [address] Phone Care Team Providers Care Dressing Machine Operator Name Role Phone Jitendra Navarro MD Unavailable Guillermo Burnette MD Primary Care Provider Angelica Laughlin MD Unavailable [phone] Encounter Details Date Type Department Care Team (Late st Contact Info) Description 07/27/2021 [facility] 1 [place] [address] Cornell Ge MD 4 [facility] [address] [place] [address] Encounter for screening for COVID-19 Social History [...] 09/30/2025 10:30 AM CDT Office Visit [facility] Medical Group - Ear, Nose & Throat - [place] [address] [place] [address] Angelica Laughlin MD #2 [facility] [address] [place] [address] documented as of this encounter Procedures Procedure Name Priority Date/Time Associated Diagnosis Comments SARS-COV-2 BY MOLECULAR Routine 07/27/2021 11:57 AM WATER SERVER Encounter for screening for COVID-19 documented in this encounter Results * SARS-COV-2 BY MOLECULAR (07/27/2021 11:57 AM WATER SERVER) SARSCOV2 NOT DETECTED (Referen ce Range for this test is Not Detected ) [facility] THERMOFISHER FAST DX 07/28/2021 9:26 AM WATER SERVER [facility] Comment:This test was perfor med by a RT-PCR method. Other Non-Phlebotomy Collection / Unknown 07/27/2021 11:57 AM WATER SERVER 07/27/2021 11:57 AM WATER SERVER Narrative [facility] - 07/28/2021 9:26 AM WATER SERVER Authorized Fact Sheets about this test for providers and patients are available at: https://www.fda.gov/medical-devices/zqwzxjipg-ktbrwxynnx-sfxmlwr-devices/emergen -us e-authorizations us Cornell Ge MD MICROBIOLOGY - GENERAL ORDERAB LES Final Result Performing Organization Address City/State/[facility] Co de Phone Number [facility] [address] [place] [address], documented in this encounter Visit Diagnoses Diagnosis [...] documented as of this encounter Care Teams Dressing Machine Operator Relationship Specialty Start Date End Date Guillermo Burnette MD [address] [place] [address] PCP - General Internal Medicine 05/05/20 Jitendra Navarro MD Consulting Physician Neurology 03/23/16 04/24/24 Angelica Laughlin MD #2 [facility] [address] Consulting Physician Otolaryngology 04/01/25 documented as of this encounter
--- OUTSIDE RECORDS SUMMARY | 2025-04-07 10:13 | XMS_ITS | Encounter Summary ---
Author Organization [facility] Address [address] [place] [address] Phone Care Team Providers Care Eyeglass Maker Name Role Phone Jitendra Navarro MD Unavailable [phone] Guillermo Burnette MD Primary Care Provider Angelica Laughlin MD Unavailable [phone] Encounter Details Date Type Department Care Team (Late st Contact Info) Description 08/24/2021 [facility] 1 [place] [address] Cornell Ge MD 4 [facility] [address] [place] [address] Encounter for screening for COVID-19 Social History [...] Description 09/30/2025 10:30 AM CDT Office Visit [facility] Medical Group - Ear, Nose & Throat - [place] [address] [place] [address] Angelica Laughlin MD #2 [facility] [address] [place] [address] documented as of this encounter Procedures Procedure Name Priority Date/Time Associated Diagnosis Comments SARS-COV-2 BY MOLECULAR Routine 08/24/2021 7:32 AM PARKING METER MECHANIC Encounter for screening for COVID-19 documented in this encounter Results * SARS-COV-2 BY MOLECULAR (08/24/2021 7:32 AM PARKING METER MECHANIC) SARSCOV2 NOT DETECTED (Referen ce Range for this test is Not Detected ) [facility] THERMOFISHER FAST DX 08/24/2021 11:03 PM [address]ING METER MECHANIC [facility] Comment:This test was perfor med by a RT-PCR method. Other Non-Phlebotomy Collection / Unknown 08/24/2021 7:32 AM PARKING METER MECHANIC 08/24/2021 11:40 AM PARKING METER MECHANIC Narrative [facility] - 08/24/2021 11:03 PM PARKING METER MECHANIC Authorized Fact Sheets about this test for providers and patients are available at: https://www.fda.gov/medical-devices/zlxdjhrdu-vdmthfpjrr-erzlgjq-devices/emergen -us e-authorizations us Cornell Ge MD MICROBIOLOGY - GENERAL ORDERAB LES Final Result Performing Organization Address City/State/[facility] Co de Phone Number [facility] [address] [place] [address], documented in this encounter Visit Diagnoses Diagnosis [...] documented as of this encounter Care Teams Eyeglass Maker Relationship Specialty Start Date End Date Guillermo Burnette MD [address] [place] [address] PCP - General Internal Medicine 05/05/20 Jitendra Navarro MD Consulting Physician Neurology 03/23/16 04/24/24 Angelica Laughlin MD #2 [facility] [phone] Consulting Physician Otolaryngology 04/01/25 documented as of this encounter
--- OUTSIDE RECORDS SUMMARY | 2025-04-07 10:13 | XMS_ITS | Encounter Summary ---
Author Organization [facility] Address [address] [place] [address] Phone Care Team Providers Care Customs Consultant Name Role Phone Jitendra Navarro MD Unavailable [phone] Guillermo Burnette MD Primary Care Provider [phone] Angelica Laughlin MD Unavailable [phone] Encounter Details Date Type Department Care Team (Late st Contact Info) Description 08/17/2021 [facility] 1 [place] [address] Cornell Ge MD 4 [facility] [address] [place] [address] Encounter for screening for COVID-19 Social History [...] Description 09/30/2025 10:30 AM CDT Office Visit [facility] Medical Group - Ear, Nose & Throat - [place] #[address] [place] [address] Angelica Laughlin MD #[address] [place] [facility] [address] [place] [address] documented as of this encounter Procedures Procedure Name Priority Date/Time Associated Diagnosis Comments SARS-COV-2 BY MOLECULAR Routine 08/17/2021 7:43 AM BATTERY CONTAINER TESTER ALUMINUM Encounter for screening for COVID-19 documented in this encounter Results * SARS-COV-2 BY MOLECULAR (08/17/2021 7:43 AM BATTERY CONTAINER TESTER ALUMINUM) SARSCOV2 NOT DETECTED (Referen ce Range for this test is Not Detected ) [facility] THERMOFISHER FAST DX 08/18/2021 12:19 AM BATTERY CONTAINER TESTER ALUMINUM [facility] Comment:This test was perfor med by a RT-PCR method. Other Non-Phlebotomy Collection / Unknown 08/17/2021 7:43 AM BATTERY CONTAINER TESTER ALUMINUM 08/17/2021 11:10 AM BATTERY CONTAINER TESTER ALUMINUM Narrative [facility] - 08/18/2021 12:19 AM BATTERY CONTAINER TESTER ALUMINUM Authorized Fact Sheets about this test for providers and patients are available at: https://www.fda.gov/medical-devices/pehusslhx-hhexoilgtl-fvzviwz-devices/emergen -us e-authorizations us Cornell Ge MD MICROBIOLOGY - GENERAL ORDERAB LES Final Result Performing Organization Address City/State/[facility] Co de Phone Number [facility] [address] [place] [address], documented in this encounter Visit Diagnoses Diagnosis [...] documented as of this encounter Care Teams Customs Consultant Relationship Specialty Start Date End Date Guillermo Burnette MD [address] [place] [address] PCP - General Internal Medicine 05/05/20 Jitendra Navarro MD Consulting Physician Neurology 03/23/16 04/24/24 Angelica Laughlin MD #2 [facility] [address] [phone] Consulting Physician Otolaryngology 04/01/25 documented as of this encounter
--- OUTSIDE RECORDS SUMMARY | 2025-04-07 10:13 | XMS_ITS | Encounter Summary ---
Author Organization [facility] Address [address] [place] [address] Phone Care Team Providers Care Chart Snatcher Name Role Phone Jitendra Navarro MD Unavailable Guillermo Burnette MD Primary Care Provider Angelica Laughlin MD Unavailable [phone] Encounter Details Date Type Department Care Team (Late st Contact Info) Description 11/16/2021 [facility] 1 [place] [address] Cornell Ge MD 4 [facility] [address] [place] [address] Encounter for screening for COVID-19 Social History [...] Description 09/30/2025 10:30 AM CDT Office Visit [facility] Medical Group - Ear, Nose & Throat - [place] [address] [place] [address] Angelica Laughlin MD [address] [facility] [address] [place] [address] documented as of this encounter Procedures Procedure Name Priority Date/Time Associated Diagnosis Comments SARS-COV-2 BY MOLECULAR Routine 11/16/2021 8:29 AM CDT Encounter for screening for COVID-19 documented in this encounter Results * SARS-COV-2 BY MOLECULAR (11/16/2021 8:29 AM CDT) SARSCOV2 NOT DETECTED (Referen ce Range for this test is Not Detected ) [facility] THERMOFISHER FAST DX 11/17/2021 1:55 PM CDT [facility] Comment:This test was perfor med by a RT-PCR method. Other Non-Phlebotomy Collection / Unknown 11/16/2021 8:29 AM CDT 11/16/2021 12:22 PM CDT Narrative [facility] - 11/17/2021 1:55 PM CDT Authorized Fact Sheets about this test for providers and patients are available at: https://www.fda.gov/medical-devices/ygcpbxuca-vmijfdfuip-epfacro-devices/emergen cy-us e-authorizations us Cornell Ge MD MICROBIOLOGY - GENERAL ORDERAB LES Final Result [facility] [address] [facility] [place] [address], documented in this encounter Visit Diagnoses Diagnosis Encounter for screening for COVID-19 documented in this encounter Additional Health Concerns Infection Onset Date Last Indicated Resolved Time COVID - 19 10/19/2021 11/23/2021 11/24/2021 6:49 AM CDT COVID - 19 Confirmed 11/23/2021 11/23/202112/13/ 022 12:16 AM CDT COVID - 19 02/22/2022 03/08/2022 03/18/2022 12:1 6 AM CDT documented as of this encounter Care Teams Chart Snatcher Relationship Specialty Start Date End Date Guillermo Burnette MD [address] [place] [address] PCP - General Internal Medicine 05/05/20 Jitendra Navarro MD Consulting Physician Neurology 03/23/16 04/24/24 Angelica Laughlin MD #2 [facility] [address] [address] Consulting Physician Otolaryngology 04/01/25 documented as of this encounter
--- OUTSIDE RECORDS SUMMARY | 2025-04-07 10:13 | XMS_ITS | Encounter Summary ---
Author Organization [facility] Address [address] [place] [address] Phone Care Team Providers Care Fire Extinguisher Mechanic Name Role Phone Jitendra Navarro MD Unavailable Guillermo Burnette MD Primary Care Provider Angelica Laughlin MD Unavailable [phone] Encounter Details Date Type Department Care Team (Late st Contact Info) Description [facility]/20/[facility] 1 [place] [phone] Cornell Ge MD 4 [facility] [address] [facility] [place] [address] Social History Tobacco Use Types Packs/Day Years [...] Description 09/30/2025 10:30 AM CDT Office Visit [facility] Medical Group - Ear, Nose & Throat - [place] [address] [place] [address] Angelica Laughlin MD #2 [facility] [address] [place] [address] documented as of this encounter Procedures Procedure Name Priority Date/Time Associated Diagnosis Comments SARS-COV-2 BY MOLECULAR Routine 04/20/2021 7:53 AM CDT documented in this encounter Results * SARS-COV-2 BY MOLECULAR (04/20/2021 7:53 AM CDT) SARSCOV2 NOT DETECTED (Referen ce Range for this test is Not Detected ) [facility] THERMOFISHER FAST DX 04/21/2021 12:01 AM CDT [facility] Comment:This test was perfor med by a RT-PCR method. Other No Phlebotomy Charged / Unknown 04/20/2021 7:53 AM CDT 04/20/2021 10:47 AM CDT Narrative [facility] - 04/21/2021 12:01 AM CDT Authorized Fact Sheets about this test for providers and patients are available at: https://www.fda.gov/medical-devices/buxloymyy-fyfbnerqbt-nrzxymk-devices/emergen cy-us e-authorizations us Cornell Ge MD MICROBIOLOGY - GENERAL ORDERAB LES Final Result [facility] [address] [place] [address], documented in this encounter Visit Diagnoses Not on filedocumented in this encounter Additional Health Concerns Infection Onset Date Last Indicated Resolved Time COVID - 19 03/09/2021 05/25/2021 06/14/2021 12:1 6 AM PERSONAL DRIVER COVID - 19 06/29/2021 09/14/2021 10/04/2021 12:1 6 AM CDT COVID - 19 10/19/2021 11/23/2021 11/24/2021 6:49 AM CDT COVID - 19 Confirmed 11/23/2021 11/23/2021 022 12:16 AM CDT COVID - 19 02/22/2022 03/08/2022 03/18/2022 12:1 6 AM CDT documented as of this encounter Care Teams Fire Extinguisher Mechanic Relationship Specialty Start Date End Date Guillermo Burnette MD [address] [facility] [address] [place] [address] PCP - General Internal Medicine 05/05/20 Jitendra Navarro MD Consulting Physician Neurology 03/23/16 04/24/24 Angelica Laughlin MD #[address] [address] Consulting Physician Otolaryngology 04/01/25 documented as of this encounter
--- OUTSIDE RECORDS SUMMARY | 2025-04-07 10:13 | XMS_ITS | Encounter Summary ---
Author Organization [facility] Address [address] [place] [address] Phone Care Team Providers Care Restorative Rehab Aide Name Role Phone Jitendra Navarro MD Unavailable Guillermo Burnette MD Primary Care Provider Angelica Laughlin MD Unavailable [phone] Encounter Details Date Type Department Care Team (Late st Contact Info) Description 07/06/2021 [facility] 1 [place] [address] Cornell Ge MD 4 [facility] [address] [place] [address] Encounter for screening for COVID-19 Social History [...] Description 09/30/2025 10:30 AM CDT Office Visit [facility] Medical Group - Ear, Nose & Throat - Mohit #[address] [place] [address] Angelica Laughlin MD #2 [place] [facility] [address] [place] [address] documented as of this encounter Procedures Procedure Name Priority Date/Time Associated Diagnosis Comments SARS-COV-2 BY MOLECULAR Routine 07/06/2021 8:23 AM SCREEN ROOM OPERATOR Encounter for screening for COVID-19 documented in this encounter Results * SARS-COV-2 BY MOLECULAR (07/06/2021 8:23 AM SCREEN ROOM OPERATOR) SARSCOV2 NOT DETECTED (Referen ce Range for this test is Not Detected ) [facility] THERMOFISHER FAST DX 07/08/2021 9:45 AM SCREEN ROOM OPERATOR [facility] Comment:This test was perfor med by a RT-PCR method. Other Non-Phlebotomy Collection / Unknown 07/06/2021 8:23 AM SCREEN ROOM OPERATOR 07/06/2021 2:45 PM SCREEN ROOM OPERATOR N[facility]ative [facility] - 07/08/2021 9:45 AM SCREEN ROOM OPERATOR Authorized Fact Sheets about this test for providers and patients are available at: https://www.fda.gov/medical-devices/kkeqnjuun-qphincnvch-vnokplu-devices/emergen -us e-authorizations us Cornell Ge MD MICROBIOLOGY - GENERAL ORDERAB LES Final Result Performing Organization Address City/State/[facility] Co de Phone Number [facility] [address] [place] [address], documented in this encounter Visit Diagnoses Diagnosis [...] documented as of this encounter Care Teams Restorative Rehab Aide Relationship Specialty Start Date End Date Guillermo Burnette MD [address] [place] [address] PCP - General Internal Medicine 05/05/20 Jitendra Navarro MD Consulting Physician Neurology 03/23/16 04/24/24 Angelica Laughlin MD #2 [facility] [address] [phone] Consulting Physician Otolaryngology 04/01/25 documented as of this encounter
--- OUTSIDE RECORDS SUMMARY | 2025-04-07 10:13 | XMS_ITS | Encounter Summary ---
Author Organization [facility] Address [address] [place] [address] Phone Care Team Providers Care Booking Clerk Name Role Phone Jitendra Navarro MD Unavailable Guillermo Burnette MD Primary Care Provider [phone] Angelica Laughlin MD Unavailable [phone] Encounter Details Date Type Department Care Team (Late st Contact Info) Description 04/13/2021 [facility] 1 [place] [address] Cornell Ge MD 4 [facility] [address] [place] [address] Encounter for screening for COVID-19 Social History [...] Description 09/30/2025 10:30 AM CDT Office Visit [facility] Medical Group - Ear, Nose & Throat - Mohit [address] [place] [address] Angelica Laughlin MD #2 [place] [facility] [address] [place] [address] documented as of this encounter Procedures Procedure Name Priority Date/Time Associated Diagnosis Comments SARS-COV-2 BY MOLECULAR Routine 04/13/2021 8:03 AM CDT Encounter for screening for COVID-19 documented in this encounter Results * SARS-COV-2 BY MOLECULAR (04/13/2021 8:03 AM CDT) SARSCOV2 NOT DETECTED (Referen ce Range for this test is Not Detected ) [facility] THERMOFISHER FAST DX 04/14/2021 9:05 AM CDT [facility] Comment:This test was perfor med by a RT-PCR method. Other No Phlebotomy Charged / Unknown 04/13/2021 8:03 AM CDT 04/13/2021 11:15 AM CDT Narrative [facility] - 04/14/2021 9:05 AM CDT Authorized Fact Sheets about this test for providers and patients are available at: https://www.fda.gov/medical-devices/nwzinjstn-blrczbjhxy-fcajrrx-devices/emergen cy-us e-authorizations us Cornell Ge MD MICROBIOLOGY - GENERAL ORDERAB LES Final Result [facility] [address] [place] [address], documented in this encounter Visit Diagnoses Diagnosis Encounter for screening for COVID-19 documented in this encounter Additional Health Concerns Infection Onset Date Last Indicated Resolved Time COVID - 19 03/09/2021 05/25/2021 06/14/2021 12:1 6 AM DIAZO TECHNICIAN COVID - 19 06/29/2021 09/14/2021 10/04/2021 12:1 6 AM CDT COVID - 19 10/19/2021 11/23/2021 11/24/2021 6:49 AM CDT COVID - 19 Confirmed 11/23/2021 11/23/2021 022 12:16 AM CDT COVID - 19 02/22/2022 03/08/2022 03/18/2022 12:1 6 AM CDT documented as of this encounter Care Teams Booking Clerk Relationship Specialty Start Date End Date Guillermo Burnette MD [address] [facility] [address] [place] [address] PCP - General Internal Medicine 05/05/20 Jitendra Navarro MD Consulting Physician Neurology 03/23/16 04/24/24 Angelica Laughlin MD #[address] [phone] Consulting Physician Otolaryngology 04/01/25 documented as of this encounter
--- OUTSIDE RECORDS SUMMARY | 2025-04-07 10:13 | XMS_ITS | Encounter Summary ---
Author Organization [facility] Address [address] [place] [address] Phone Care Team Providers Care Hydrometer Tester Name Role Phone Jitendra Navarro MD Unavailable Guillermo Burnette MD Primary Care Provider Angelica Laughlin MD Unavailable [phone] Encounter Details Date Type Department Care Team (Late st Contact Info) Description 10/19/2021 [facility] 1 [place] [address] Cornell Ge MD [address] [facility] [address] [place] [address] Encounter for screening for COVID-19 Social History [...] Throat - Mohit #[address] [place] [address] Angelica Laughlin MD #2 [facility] [address] [place] [address] documented as of this encounter Procedures Procedure Name Priority Date/Time Associated Diagnosis Comments SARS-COV-2 BY MOLECULAR Routine 10/19/2021 8:00 AM CDT Encounter for screening for COVID-19 documented in this encounter Results * SARS-COV-2 BY MOLECULAR (10/19/2021 8:00 AM CDT) SARSCOV2 NOT DETECTED (Referen ce Range for this test is Not Detected ) [facility] THERMOFISHER FAST DX 10/19/2021 11:40 PM CDT [facility] Comment:This test was perfor med by a RT-PCR method. Other Non-Phlebotomy Collection / Unknown 10/19/2021 8:00 AM CDT 10/19/2021 12:00 PM CDT Narrative [facility] - 10/19/2021 11:40 PM CDT Authorized Fact Sheets about this test for providers and patients are available at: https://www.fda.gov/medical-devices/zleiuqihv-cshryjdyez-jjbjakg-devices/emergen cy-us e-authorizations us Cornell Ge MD MICROBIOLOGY - GENERAL ORDERAB LES Final Result [facility] [address] [place] [address], documented in this encounter Visit Diagnoses Diagnosis Encounter for screening for COVID-19 documented in this encounter Additional Health Concerns Infection Onset Date Last Indicated Resolved Time COVID - 19 10/19/2021 11/23/2021 11/24/2021 6:49 AM CDT COVID - 19 Confirmed 11/23/2021 11/23/202112/13/ 022 12:16 AM CDT COVID - 19 02/22/2022 03/08/2022 03/18/2022 12:1 6 AM CDT documented as of this encounter Care Teams Hydrometer Tester Relationship Specialty Start Date End Date Guillermo Burnette MD [address] [place] [address] PCP - General Internal Medicine 05/05/20 Jitendra Navarro MD Consulting Physician Neurology 03/23/16 04/24/24 Angelica Laughlin MD #2 [facility] [address] [address] Consulting Physician Otolaryngology 04/01/25 documented as of this encounter
--- OUTSIDE RECORDS SUMMARY | 2025-04-07 10:13 | XMS_ITS | Encounter Summary ---
Author Organization [facility] Address [address] [place] [address] Phone Care Team Providers Care International Relations Professor Name Role Phone Jitendra Navarro MD Unavailable [phone] Guillermo Burnette MD Primary Care Provider Angelica Laughlin MD Unavailable [phone] Encounter Details Date Type Department Care Team (Late st Contact Info) Description 08/31/2021 [facility] 1 [place] [phone] Cornell Ge MD 4 [facility] [address] [place] [address] Encounter for screening for COVID-19 Social History [...] 09/30/2025 10:30 AM CDT Office Visit [facility] Medical Group - Ear, Nose & Throat - Mohit [address] [place] [address] Angelica Laughlin MD #2 [facility] [address] [place] [address] documented as of this encounter Procedures Procedure Name Priority Date/Time Associated Diagnosis Comments SARS-COV-2 BY MOLECULAR Routine 08/31/2021 7:32 AM CDT Encounter for screening for COVID-19 documented in this encounter Results * SARS-COV-2 BY MOLECULAR (08/31/2021 7:32 AM CDT) SARSCOV2 NOT DETECTED (Referen ce Range for this test is Not Detected ) [facility] THERMOFISHER FAST DX 08/31/2021 11:53 PM CDT [facility] Comment:This test was perfor med by a RT-PCR method. Other Non-Phlebotomy Collection / Unknown 08/31/2021 7:32 AM CDT 08/31/2021 12:33 PM CDT Narrative [facility] - 08/31/2021 11:53 PM CDT Authorized Fact Sheets about this test for providers and patients are available at: https://www.fda.gov/medical-devices/kcnycsprd-hxeirglets-pebirbw-devices/emergen cy-us e-authorizations us Cornell Ge MD MICROBIOLOGY - GENERAL ORDERAB LES Final Result [facility] [address] [facility] [place] [id number], documented in this encounter Visit Diagnoses Diagnosis [...] documented as of this encounter Care Teams International Relations Professor Relationship Specialty Start Date End Date Guillermo Burnette MD [address] [place] [address] PCP - General Internal Medicine 05/05/20 Jitendra Navarro MD Consulting Physician Neurology 03/23/16 04/24/24 Angelica Laughlin MD #[address] [address] Consulting Physician Otolaryngology 04/01/25 documented as of this encounter
--- OUTSIDE RECORDS SUMMARY | 2025-04-07 10:13 | XMS_ITS | Encounter Summary ---
Author Organization [facility] Address [address] [place] [address] Phone Care Team Providers Care [employer]et [employer] Name Role Phone Jitendra Navarro MD Unavailable [phone] Guillermo Burnette MD Primary Care Provider Angelica Laughlin MD Unavailable [phone] Encounter Details Date Type Department Care Team (Late st Contact Info) Description 10/26/2021 [facility] 1 [place] [address] Cornell Ge MD 4 [facility] [address] [place] [address] Encounter for screening for COVID-19 Social History [...] Throat - Mohit #[address] [place] [address] Angelica Laughlin MD #2 [facility] [address] [place] [address] documented as of this encounter Procedures Procedure Name Priority Date/Time Associated Diagnosis Comments SARS-COV-2 BY MOLECULAR Routine 10/26/2021 8:26 AM CDT Encounter for screening for COVID-19 documented in this encounter Results * SARS-COV-2 BY MOLECULAR (10/26/2021 8:26 AM CDT) SARSCOV2 NOT DETECTED (Referen ce Range for this test is Not Detected ) [facility] THERMOFISHER FAST DX 10/27/2021 1:11 PM CDT [facility] Comment:This test was perfor med by a RT-PCR method. Other Non-Phlebotomy Collection / Unknown 10/26/2021 8:26 AM CDT 10/26/2021 11:23 AM CDT Narrative [facility] - 10/27/2021 1:11 PM CDT Authorized Fact Sheets about this test for providers and patients are available at: https://www.fda.gov/medical-devices/gnbnxpmfl-ybzmtqqxsz-alzrbwm-devices/emergen cy-us e-authorizations us Cornell Ge MD MICROBIOLOGY - GENERAL ORDERAB LES Final Result [facility] [address] [place] [address], documented in this encounter Visit Diagnoses Diagnosis Encounter for screening for COVID-19 documented in this encounter Additional Health Concerns Infection Onset Date Last Indicated Resolved Time COVID - 19 10/19/2021 11/23/2021 11/24/2021 6:49 AM CDT COVID - 19 Confirmed 11/23/2021 11/23/202112/13/ 022 12:16 AM CDT COVID - 19 02/22/2022 03/08/2022 03/18/2022 12:1 6 AM CDT documented as of this encounter Care Teams [employer] Relationship Specialty Start Date End Date Guillermo Burnette MD [address] [place] [address] PCP - General Internal Medicine 05/05/20 Jitendra Navarro MD Consulting Physician Neurology 03/23/16 04/24/24 Angelica Laughlin MD #2 [facility] [address] [address] Consulting Physician Otolaryngology 04/01/25 documented as of this encounter
--- OUTSIDE RECORDS SUMMARY | 2025-04-07 10:13 | XMS_ITS | Encounter Summary ---
Author Organization [facility] Address [address] [place] [address] Phone Care Team Providers Care Colorman Name Role Phone Jitendra Navarro MD Unavailable [phone] Guillermo Burnette MD Primary Care Provider Angelica Laughlin MD Unavailable [phone] Encounter Details Date Type Department Care Team (Late st Contact Info) Description 03/09/2021 [facility] 1 [place] [address] Cornell Ge MD 4 [facility] [address] [place] [address] Encounter for screening for COVID-19 Social History [...] Description 09/30/2025 10:30 AM CDT Office Visit [facility] Medical Group - Ear, Nose & Throat - Mohit [address] [place] [address] Angelica Laughlin MD #2 [facility] [address] [place] [address] documented as of this encounter Procedures Procedure Name Priority Date/Time Associated Diagnosis Comments SARS-COV-2 BY MOLECULAR Routine 03/09/2021 9:35 AM CDT documented in this encounter Results * SARS-COV-2 BY MOLECULAR (03/09/2021 9:35 AM CDT) SARSCOV2 NOT DETECTED (Referen ce Range for this test is Not Detected ) [facility] THERMOFISHER FAST DX 03/10/2021 8:27 AM CDT [facility] Comment:This test was perfor med by a RT-PCR method. Other Non-Phlebotomy Collection / Unknown 03/09/2021 9:35 AM CDT 03/09/2021 12:06 PM CDT Narrative [facility] - 03/10/2021 8:27 AM CDT Authorized Fact Sheets about this test for providers and patients are available at: https://www.fda.gov/medical-devices/dxmpscwfd-zhcxvhrudi-buchoyi-devices/emergen -us e-authorizations us Cornell Ge MD MICROBIOLOGY - GENERAL ORDERAB LES Final Result [facility] [address] [place] [address], documented in this encounter Visit Diagnoses Diagnosis Encounter for screening for COVID-19 documented in this encounter Additional Health Concerns Infection Onset Date Last Indicated Resolved Time COVID - 19 03/09/2021 05/25/2021 06/14/2021 12:1 6 AM TERRAZZO LABORER COVID - 19 06/29/2021 09/14/2021 10/04/2021 12:1 6 AM CDT COVID - 19 10/19/2021 11/23/2021 11/24/2021 6:49 AM CDT COVID - 19 Confirmed 11/23/2021 11/23/2021 022 12:16 AM CDT COVID - 19 02/22/2022 03/08/2022 03/18/2022 12:1 6 AM CDT documented as of this encounter Care Teams Colorman Relationship Specialty Start Date End Date Guillermo Burnette MD [address] [facility] [address] [place] [address] PCP - General Internal Medicine 05/05/20 Jitendra Navarro MD Consulting Physician Neurology 03/23/16 04/24/24 Angelica Laughlin MD #[address] [address] Consulting Physician Otolaryngology 04/01/25 documented as of this encounter
--- OUTSIDE RECORDS SUMMARY | 2025-04-07 10:13 | XMS_ITS | Encounter Summary ---
Author Organization [facility] Address [address] [place] [address] Phone Care Team Providers Care Convict Guard Name Role Phone Jitendra Navarro MD Unavailable [phone] Guillermo Burnette MD Primary Care Provider Angelica Laughlin MD Unavailable [phone] Encounter Details Date Type Department Care Team (Late st Contact Info) Description [facility]/03/[facility] 1 [place] [address] Cornell Ge MD [address] [facility] [address] [place] [address] Encounter for screening for COVID-19 Social History [...] Throat - Mohit #[address] [place] [address] Angelica Laughlin MD #2 [place] [facility] [address] [place] [address] documented as of this encounter Procedures Procedure Name Priority Date/Time Associated Diagnosis Comments SARS-COV-2 BY MOLECULAR Routine 08/03/2021 7:22 AM CUSTOMER CONSULTANT Encounter for screening for COVID-19 documented in this encounter Results * SARS-COV-2 BY MOLECULAR (08/03/2021 7:22 AM CUSTOMER CONSULTANT) SARSCOV2 NOT DETECTED (Referen ce Range for this test is Not Detected ) [facility] THERMOFISHER FAST DX 08/04/2021 12:35 AM CUSTOMER CONSULTANT [facility] Comment:This test was perfor med by a RT-PCR method. Other Non-Phlebotomy Collection / Unknown 08/03/2021 7:22 AM CUSTOMER CONSULTANT 08/03/2021 11:47 AM CUSTOMER CONSULTANT Narrative [facility] - 08/04/2021 12:35 AM CUSTOMER CONSULTANT Authorized Fact Sheets about this test for providers and patients are available at: https://www.fda.gov/medical-devices/axvilnaai-ciufoupree-woorsgh-devices/emergen -us e-authorizations us Cornell Ge MD MICROBIOLOGY - GENERAL ORDERAB LES Final Result Performing Organization Address City/State/[facility] Co de Phone Number [facility] [address] [place] [address], documented in this encounter Visit Diagnoses Diagnosis [...] documented as of this encounter Care Teams Convict Guard Relationship Specialty Start Date End Date Guillermo Burnette MD [address] [place] [address] PCP - General Internal Medicine 05/05/20 Jitendra Navarro MD Consulting Physician Neurology 03/23/16 04/24/24 Angelica Laughlin MD #2 [facility] [address] [phone] Consulting Physician Otolaryngology 04/01/25 documented as of this encounter
--- OUTSIDE RECORDS SUMMARY | 2025-04-07 10:13 | XMS_ITS | Encounter Summary ---
Author Organization [facility] Address [address] [place] [address] Phone Care Team Providers Care Machinist Supervisor Name Role Phone Jitendra Navarro MD Unavailable Guillermo Burnette MD Primary Care Provider Angelica Laughlin MD Unavailable [phone] Encounter Details Date Type Department Care Team (Late st Contact Info) Description 05/04/2021 [facility] 1 [place] [phone] Cornell Ge MD 4 [facility] [address] [facility] [place] [address] Social History Tobacco Use Types Packs/Day Years [...] Description 09/30/2025 10:30 AM CDT Office Visit [facility] Medical Group - Ear, Nose & Throat - [place] [address] [place] [address] Angelica Laughlin MD #2 [facility] [address] [place] [address] documented as of this encounter Procedures Procedure Name Priority Date/Time Associated Diagnosis Comments SARS-COV-2 BY MOLECULAR Routine 05/04/2021 8:11 AM TACK PICKER documented in this encounter Results * SARS-COV-2 BY MOLECULAR (05/04/2021 8:11 AM TACK PICKER) SARSCOV2 NOT DETECTED (Referen ce Range for this test is Not Detected ) [facility] THERMOFISHER FAST DX 05/05/2021 9:13 AM TACK PICKER [facility] Comment:This test was perfor med by a RT-PCR method. Other Non-Phlebotomy Collection / Unknown 05/04/2021 8:11 AM TACK PICKER 05/04/2021 11:01 AM TACK PICKER Narrative [facility] - 05/05/2021 9:13 AM TACK PICKER Authorized Fact Sheets about this test for providers and patients are available at: https://www.fda.gov/medical-devices/wrhtvaoym-uccluayfxr-ggeswkm-devices/emergen cy-us e-authorizations us Cornell Ge MD MICROBIOLOGY - GENERAL ORDERAB LES Final Result [facility] [address] [place] [address], documented in this encounter Visit Diagnoses Not on filedocumented in this encounter Additional Health Concerns Infection Onset Date Last Indicated Resolved Time COVID - 19 03/09/2021 05/25/2021 06/14/2021 12:1 6 AM TACK PICKER COVID - 19 06/29/2021 09/14/2021 10/04/2021 12:1 6 AM CDT COVID - 19 10/19/2021 11/23/2021 11/24/2021 6:49 AM CDT COVID - 19 Confirmed 11/23/2021 11/23/2021 022 12:16 AM CDT COVID - 19 02/22/2022 03/08/2022 03/18/2022 12:1 6 AM CDT documented as of this encounter Care Teams Machinist Supervisor Relationship Specialty Start Date End Date Guillermo Burnette MD [address] [place] [address] PCP - General Internal Medicine 05/05/20 Jitendra Navarro MD Consulting Physician Neurology 03/23/16 04/24/24 Angelica Laughlin MD #[address] [address] Consulting Physician Otolaryngology 04/01/25 documented as of this encounter
--- OUTSIDE RECORDS SUMMARY | 2025-04-07 10:13 | XMS_ITS | Encounter Summary ---
Author Organization [facility] Address [address] [place] [address] Phone Care Team Providers Care Filter Press Tender Head Name Role Phone Jitendra Navarro MD Unavailable [phone] Guillermo Burnette MD Primary Care Provider Angelica Laughlin MD Unavailable [phone] Encounter Details Date Type Department Care Team (Late st Contact Info) Description 09/14[facility] 1 [place] [address] Cornell Ge MD 4 [facility] [address] [place] [address] Encounter for screening for COVID-19 Social History [...] Throat - Mohit #2 [address] [place] [address] Angelica Laughlin MD #2 [facility] [address] [place] [address] documented as of this encounter Procedures Procedure Name Priority Date/Time Associated Diagnosis Comments SARS-COV-2 BY MOLECULAR Routine 09/14/2021 7:45 AM CDT Encounter for screening for COVID-19 documented in this encounter Results * SARS-COV-2 BY MOLECULAR (09/14/2021 7:45 AM CDT) SARSCOV2 NOT DETECTED (Referen ce Range for this test is Not Detected ) [facility] THERMOFISHER FAST DX 09/15/2021 12:26 AM CDT [facility] Comment:This test was perfor med by a RT-PCR method. Other No Phlebotomy Charged / Unknown 09/14/2021 7:45 AM CDT 09/14/2021 12:57 PM CDT Narrative [facility] - 09/15/2021 12:26 AM CDT Authorized Fact Sheets about this test for providers and patients are available at: https://www.fda.gov/medical-devices/mjazpfklu-xhbhaldeos-ducgbvx-devices/emergen cy-us e-authorizations us Cornell Ge MD MICROBIOLOGY - GENERAL ORDERAB LES Final Result [facility] [address] [place] [id number], documented in this encounter Visit Diagnoses Diagnosis [...] documented as of this encounter Care Teams Filter Press Tender Head Relationship Specialty Start Date End Date Guillermo Burnette MD [address] [place] [address] PCP - General Internal Medicine 05/05/20 Jitendra Navarro MD Consulting Physician Neurology 03/23/16 04/24/24 Angelica Laughlin MD #[address] [address] Consulting Physician Otolaryngology 04/01/25 documented as of this encounter
--- OUTSIDE RECORDS SUMMARY | 2025-04-07 10:13 | XMS_ITS | Encounter Summary ---
Author Organization [facility] Address [address] [place] [address] Phone Care Team Providers Care Meat Packager Name Role Phone Jitendra Navarro MD Unavailable Guillermo Burnette MD Primary Care Provider Angelica Laughlin MD Unavailable [phone] Encounter Details Date Type Department Care Team (Late st Contact Info) Description 06/29/2021 [facility] 1 [place] [phone] Cornell Ge MD 4 [facility] 210 [facility] [place] [address] Social History Tobacco Use Types Packs/Day Years [...] Description 09/30/2025 10:30 AM CDT Office Visit [facility] Medical Group - Ear, Nose & Throat - [place] #[address] [place] [address] Angelica Laughlin MD #2 [facility] [address] [place] [address] documented as of this encounter Procedures Procedure Name Priority Date/Time Associated Diagnosis Comments SARS-COV-2 BY MOLECULAR Routine 06/29/2021 7:43 AM TOLL TEST DESK WORKER documented in this encounter Results * SARS-COV-2 BY MOLECULAR (06/29/2021 7:43 AM TOLL TEST DESK WORKER) SARSCOV2 NOT DETECTED (Referen ce Range for this test is Not Detected ) [facility] THERMOFISHER FAST DX 07/01/2021 6:12 AM TOLL TEST DESK WORKER [facility] Comment:This test was perfor med by a RT-PCR method. Other Non-Phlebotomy Collection / Unknown 06/29/2021 7:43 AM TOLL TEST DESK WORKER 06/29/2021 11:41 AM TOLL TEST DESK WORKER Narrative [facility] - 07/01/2021 6:12 AM TOLL TEST DESK WORKER Authorized Fact Sheets about this test for providers and patients are available at: https://www.fda.gov/medical-devices/umyidhxog-epgtcxzelc-gjxwtje-devices/emergen cy-us e-authorizations us Cornell Ge MD MICROBIOLOGY - GENERAL ORDERAB LES Final Result [facility] [address] [phone], documented in this encounter Visit Diagnoses Not [...] documented as of this encounter Care Teams Meat Packager Relationship Specialty Start Date End Date Guillermo Burnette MD [address] [facility] [address] [place] [address] PCP - General Internal Medicine 05/05/20 Jitendra Navarro MD Consulting Physician Neurology 03/23/16 04/24/24 Angelica Laughlin MD #2 [facility] [address] [phone] Consulting Physician Otolaryngology 04/01/25 documented as of this encounter
--- OUTSIDE RECORDS SUMMARY | 2025-04-07 10:13 | XMS_ITS | Encounter Summary ---
Author Organization [facility] Address [address] [place] [address] Phone Care Team Providers Care Heavy Mobile Equipment Operator Name Role Phone Jitendra Navarro MD Unavailable Guillermo Burnette MD Primary Care Provider [phone] Angelica Laughlin MD Unavailable [phone] Encounter Details Date Type Department Care Team (Late st Contact Info) Description 05/11/2021 [facility] 1 [place] [phone] Cornell Ge MD 4 [facility] [address] [facility] [place] [address] Social History Tobacco Use Types Packs/Day Years [...] 09/30/2025 10:30 AM CDT Office Visit [facility] Medical Group - Ear, Nose & Throat - [place] #[address] [place] [address] Angelica Laughlin MD #2 [facility] [address] [place] [address] documented as of this encounter Procedures Procedure Name Priority Date/Time Associated Diagnosis Comments SARS-COV-2 BY MOLECULAR Routine 05/11/2021 7:53 AM HARDBOARD COATING MACHINE OPERATOR documented in this encounter Results * SARS-COV-2 BY MOLECULAR (05/11/2021 7:53 AM HARDBOARD COATING MACHINE OPERATOR) SARSCOV2 NOT DETECTED (Referen ce Range for this test is Not Detected ) [facility] THERMOFISHER FAST DX 05/12/2021 10:21 AM HARDBOARD COATING MACHINE OPERATOR [facility] Comment:This test was perfor med by a RT-PCR method. Other Non-Phlebotomy Collection / Unknown 05/11/2021 7:53 AM HARDBOARD COATING MACHINE OPERATOR 05/11/2021 10:35 AM HARDBOARD COATING MACHINE OPERATOR Narrative [facility] - 05/12/2021 10:21 AM HARDBOARD COATING MACHINE OPERATOR Authorized Fact Sheets about this test for providers and patients are available at: https://www.fda.gov/medical-devices/agolfagan-cwdqrydhbk-npwkmeg-devices/emergen cy-us e-authorizations us Cornell Ge MD MICROBIOLOGY - GENERAL ORDERAB LES Final Result [facility] [address] [place] [address], documented in this encounter Visit Diagnoses Not on filedocumented in this encounter Additional Health Concerns Infection Onset Date Last Indicated Resolved Time COVID - 19 03/09/2021 05/25/2021 06/14/2021 12:1 6 AM HARDBOARD COATING MACHINE OPERATOR COVID - 19 06/29/2021 09/14/2021 10/04/2021 12:1 6 AM CDT COVID - 19 10/19/2021 11/23/2021 11/24/2021 6:49 AM CDT COVID - 19 Confirmed 11/23/2021 11/23/2021 022 12:16 AM CDT COVID - 19 02/22/2022 03/08/2022 03/18/2022 12:1 6 AM CDT documented as of this encounter Care Teams Heavy Mobile Equipment Operator Relationship Specialty Start Date End Date Guillermo Burnette MD [address] [place] [address] PCP - General Internal Medicine 05/05/20 Jitendra Navarro MD Consulting Physician Neurology 03/23/16 04/24/24 Angelica Laughlin MD #[address] [address] Consulting Physician Otolaryngology 04/01/25 documented as of this encounter
--- OUTSIDE RECORDS SUMMARY | 2025-04-07 10:13 | XMS_ITS | Encounter Summary ---
Author Organization [facility] Address [address] [place] [address] Phone Care Team Providers Care Route Service Manager Name Role Phone Jitendra Navarro MD Unavailable Guillermo Burnette MD Primary Care Provider Angelica Laughlin MD Unavailable [phone] Encounter Details Date Type Department Care Team (Late st Contact Info) Description 05/18/2021 [facility] 1 [place] [address] Cornell Ge MD 4 [facility] 210 [facility] [place] [address] Social History Tobacco Use Types Packs/Day Years [...] Description 09/30/2025 10:30 AM CDT Office Visit [facility] Medical Group - Ear, Nose & Throat - [place] #[address] [place] [address] Angelica Laughlin MD #2 [facility] [address] [place] [address] documented as of this encounter Procedures Procedure Name Priority Date/Time Associated Diagnosis Comments SARS-COV-2 BY MOLECULAR Routine 05/18/2021 7:53 AM PCA documented in this encounter Results * SARS-COV-2 BY MOLECULAR (05/18/2021 7:53 AM PCA) SARSCOV2 NOT DETECTED (Referen ce Range for this test is Not Detected ) [facility] THERMOFISHER FAST DX 05/18/2021 11:54 PM PCA [facility] Comment:This test was perfor med by a RT-PCR method. Other Non-Phlebotomy Collection / Unknown 05/18/2021 7:53 AM PCA 05/18/2021 10:53 AM PCA Narrative [facility] - 05/18/2021 11:54 PM PCA Authorized Fact Sheets about this test for providers and patients are available at: https://www.fda.gov/medical-devices/yxwygdbmh-ylmwgjedgc-tesofzn-devices/emergen cy-us e-authorizations us Cornell Ge MD MICROBIOLOGY - GENERAL ORDERAB LES Final Result [facility] [address] [place] [address], documented in this encounter Visit Diagnoses Not on filedocumented in this encounter Additional Health Concerns Infection Onset Date Last Indicated Resolved Time COVID - 19 03/09/2021 05/25/2021 06/14/2021 12:1 6 AM PCA COVID - 19 06/29/2021 09/14/2021 10/04/2021 12:1 6 AM CDT COVID - 19 10/19/2021 11/23/2021 11/24/2021 6:49 AM CDT COVID - 19 Confirmed 11/23/2021 11/23/2021 022 12:16 AM CDT COVID - 19 02/22/2022 03/08/2022 03/18/2022 12:1 6 AM CDT documented as of this encounter Care Teams Route Service Manager Relationship Specialty Start Date End Date Guillermo Burnette MD [address] [place] [address] PCP - General Internal Medicine 05/05/20 Jitendra Navarro MD Consulting Physician Neurology 03/23/16 04/24/24 Angelica Laughlin MD #[address] [address] Consulting Physician Otolaryngology 04/01/25 documented as of this encounter
--- OUTSIDE RECORDS SUMMARY | 2025-04-07 10:13 | XMS_ITS | Encounter Summary ---
Author Organization [facility] Address [address] [place] [address] Phone Care Team Providers Care Workers Compensation Consultant Name Role Phone Jitendra Navarro MD Unavailable Guillermo Burnette MD Primary Care Provider Angelica Laughlin MD Unavailable [phone] Encounter Details Date Type Department Care Team (Late st Contact Info) Description [facility]/13/[facility] 1 [place] [address] Cornell Ge MD 4 [facility] [address] [place] [address] Encounter for screening for COVID-19 Social History [...] Description 09/30/2025 10:30 AM CDT Office Visit [facility] Medical Group - Ear, Nose & Throat - [place] #[address] [place] [address] Angelica Laughlin MD #2 [facility] [place] [place] [facility] [address] [place] [address] documented as of this encounter Procedures Procedure Name Priority Date/Time Associated Diagnosis Comments SARS-COV-2 BY MOLECULAR Routine 07/13/2021 7:29 AM BOOKING AGENT Encounter for screening for COVID-19 documented in this encounter Results * SARS-COV-2 BY MOLECULAR (07/13/2021 7:29 AM BOOKING AGENT) SARSCOV2 NOT DETECTED (Referen ce Range for this test is Not Detected ) [facility] THERMOFISHER FAST DX 07/14/2021 3:19 PM BOOKING AGENT [facility] Comment:This test was perfor med by a RT-PCR method. Other No Phlebotomy Charged / Unknown 07/13/2021 7:29 AM BOOKING AGENT 07/13/2021 11:40 AM BOOKING AGENT Narrative [facility] - 07/14/2021 3:19 PM BOOKING AGENT Authorized Fact Sheets about this test for providers and patients are available at: https://www.fda.gov/medical-devices/gwphaluab-lysazhqiys-uckxkez-devices/emergen -us e-authorizations us Cornell Ge MD MICROBIOLOGY - GENERAL ORDERAB LES Final Result Performing Organization Address City/State/[facility] Co de Phone Number [facility] [address] [place] [address], documented in this encounter Visit Diagnoses Diagnosis [...] documented as of this encounter Care Teams Workers Compensation Consultant Relationship Specialty Start Date End Date Guillermo Burnette MD [address] [place] [address] PCP - General Internal Medicine 05/05/20 Jitendra Navarro MD Consulting Physician Neurology 03/23/16 04/24/24 Angelica Laughlin MD #[address] [phone] Consulting Physician Otolaryngology 04/01/25 documented as of this encounter
--- OUTSIDE RECORDS SUMMARY | 2025-04-07 10:13 | XMS_ITS | Encounter Summary ---
Author Organization [facility] Address [address] [place] [address] Phone Care Team Providers Care Driller And Reamer Name Role Phone Jitendra Navarro MD Unavailable Guillermo Burnette MD Primary Care Provider Angelica Laughlin MD Unavailable [phone] Encounter Details Date Type Department Care Team (Late st Contact Info) Description 08/10/2021 [facility] 1 [place] [address] Cornell Ge MD [address] [facility] [address] [place] [address] Encounter for screening for COVID-19 Social History [...] Description 09/30/2025 10:30 AM CDT Office Visit [facility] Medical Group - Ear, Nose & Throat - Mohit #[address] [place] [address] Angelica Laughlin MD #2 [facility] [address] [place] [address] documented as of this encounter Procedures Procedure Name Priority Date/Time Associated Diagnosis Comments SARS-COV-2 BY MOLECULAR Routine 08/10/2021 7:46 AM INSURANCE PROFESSIONAL Encounter for screening for COVID-19 documented in this encounter Results * SARS-COV-2 BY MOLECULAR (08/10/2021 7:46 AM INSURANCE PROFESSIONAL) SARSCOV2 NOT DETECTED (Referen ce Range for this test is Not Detected ) [facility] THERMOFISHER FAST DX 08/10/2021 11:40 PM INSURANCE PROFESSIONAL [facility] Comment:This test was perfor med by a RT-PCR method. Other Non-Phlebotomy Collection / Unknown 08/10/2021 7:46 AM INSURANCE PROFESSIONAL 08/10/2021 10:29 AM INSURANCE PROFESSIONAL Narrative [facility] - 08/10/2021 11:40 PM INSURANCE PROFESSIONAL Authorized Fact Sheets about this test for providers and patients are available at: https://www.fda.gov/medical-devices/krgknzrob-qxnxixxuhl-aplhvnm-devices/emergen -us e-authorizations us Cornell Ge MD MICROBIOLOGY - GENERAL ORDERAB LES Final Result Performing Organization Address City/State/[facility] Co de Phone Number [facility] [address] [place] [address], documented in this encounter Visit Diagnoses Diagnosis [...] documented as of this encounter Care Teams Driller And Reamer Relationship Specialty Start Date End Date Guillermo Burnette MD [address] [place] [address] PCP - General Internal Medicine 05/05/20 Jitendra Navarro MD Consulting Physician Neurology 03/23/16 04/24/24 Angelica Laughlin MD #2 [facility] [address] [phone] Consulting Physician Otolaryngology 04/01/25 documented as of this encounter
--- OUTSIDE RECORDS SUMMARY | 2025-04-07 10:13 | XMS_ITS | Encounter Summary ---
Author Organization [facility] Address [address] [place] [address] Phone Care Team Providers Care Seo Team Lead Name Role Phone Jitendra Navarro MD Unavailable [phone] Guillermo Burnette MD Primary Care Provider Angelica Laughlin MD Unavailable [phone] Encounter Details Date Type Department Care Team (Late st Contact Info) Description 03/30/2021 [facility] 1 [place] [address] Cornell Ge MD 4 [facility] [address] [place] [address] Encounter for screening for COVID-19 Social History [...] Throat - Mohit #[address] [place] [address] Angelica Laughlin MD #2 [facility] [address] [place] [address] documented as of this encounter Procedures Procedure Name Priority Date/Time Associated Diagnosis Comments SARS-COV-2 BY MOLECULAR Routine 03/30/2021 8:20 AM CDT Encounter for screening for COVID-19 documented in this encounter Results * SARS-COV-2 BY MOLECULAR (03/30/2021 8:20 AM CDT) SARSCOV2 NOT DETECTED (Referen ce Range for this test is Not Detected ) [facility] THERMOFISHER FAST DX 03/31/2021 10:46 AM CDT [facility] Comment:This test was perfor med by a RT-PCR method. Other Non-Phlebotomy Collection / Unknown 03/30/2021 8:20 AM CDT 03/30/2021 11:21 AM CDT Narrative [facility] - 03/31/2021 10:46 AM CDT Authorized Fact Sheets about this test for providers and patients are available at: https://www.fda.gov/medical-devices/qcwnwdfrq-qsgpuhlkhc-mqrhqug-devices/emergen cy-us e-authorizations us Cornell Ge MD MICROBIOLOGY - GENERAL ORDERAB LES Final Result [facility] [address] [place] [address], documented in this encounter Visit Diagnoses Diagnosis Encounter for screening for COVID-19 documented in this encounter Additional Health Concerns Infection Onset Date Last Indicated Resolved Time COVID - 19 03/09/2021 05/25/2021 06/14/2021 12:1 6 AM NARROW GAUGE BRAKEMAN COVID - 19 06/29/2021 09/14/2021 10/04/2021 12:1 6 AM CDT COVID - 19 10/19/2021 11/23/2021 11/24/2021 6:49 AM CDT COVID - 19 Confirmed 11/23/2021 11/23/2021 022 12:16 AM CDT COVID - 19 02/22/2022 03/08/2022 03/18/2022 12:1 6 AM CDT documented as of this encounter Care Teams Seo Team Lead Relationship Specialty Start Date End Date Guillermo Burnette MD [address] [facility] 160 [place] [address] PCP - General Internal Medicine 05/05/20 Jitendra Navarro MD Consulting Physician Neurology 03/23/16 04/24/24 Angelica Laughlin MD #[address] [phone] Consulting Physician Otolaryngology 04/01/25 documented as of this encounter
--- OUTSIDE RECORDS SUMMARY | 2025-04-07 10:13 | XMS_ITS | Encounter Summary ---
Author Organization [facility] Address [address] [place] [address] Phone Care Team Providers Care Plodding Operator Name Role Phone Jitendra Navarro MD Unavailable Guillermo Burnette MD Primary Care Provider Angelica Laughlin MD Unavailable [phone] Encounter Details Date Type Department Care Team (Late st Contact Info) Description [facility] 1 [place] [address] Cornell Ge MD 4 [facility] [address] [place] [address] Encounter for screening for COVID-19 Social History [...] Description 09/30/2025 10:30 AM CDT Office Visit [facility] Medical Group - Ear, Nose & Throat - [place] #[address] [place] [address] Angelica Laughlin MD #2 [facility] [address] [place] [address] documented as of this encounter Procedures Procedure Name Priority Date/Time Associated Diagnosis Comments SARS-COV-2 BY MOLECULAR Routine 04/27/2021 8:08 AM BUSINESS SERVICES SALES REPRESENTATIVE Encounter for screening for COVID-19 documented in this encounter Results * SARS-COV-2 BY MOLECULAR (04/27/2021 8:08 AM BUSINESS SERVICES SALES REPRESENTATIVE) SARSCOV2 NOT DETECTED (Referen ce Range for this test is Not Detected ) [facility] THERMOFISHER FAST DX 04/28/2021 1:33 PM BUSINESS SERVICES SALES REPRESENTATIVE [facility] Comment:This test was perfor med by a RT-PCR method. Other Non-Phlebotomy Collection / Unknown 04/27/2021 8:08 AM BUSINESS SERVICES SALES REPRESENTATIVE 04/27/2021 10:16 AM BUSINESS SERVICES SALES REPRESENTATIVE Narrative [facility] - 04/28/2021 1:33 PM BUSINESS SERVICES SALES REPRESENTATIVE Authorized Fact Sheets about this test for providers and patients are available at: https://www.fda.gov/medical-devices/cnilhlyfi-dsrcxawkci-ieeztto-devices/emergen cy-us e-authorizations us Cornell Ge MD MICROBIOLOGY - GENERAL ORDERAB LES Final Result [facility] [address] [place] [address], documented in this encounter Visit Diagnoses Diagnosis Encounter for screening for COVID-19 documented in this encounter Additional Health Concerns Infection Onset Date Last Indicated Resolved Time COVID - 19 03/09/2021 05/25/2021 06/14/2021 12:1 6 AM BUSINESS SERVICES SALES REPRESENTATIVE COVID - 19 06/29/2021 09/14/2021 10/04/2021 12:1 6 AM CDT COVID - 19 10/19/2021 11/23/2021 11/24/2021 6:49 AM CDT COVID - 19 Confirmed 11/23/2021 11/23/2021 022 12:16 AM CDT COVID - 19 02/22/2022 03/08/2022 03/18/2022 12:1 6 AM CDT documented as of this encounter Care Teams Plodding Operator Relationship Specialty Start Date End Date Guillermo Burnette MD [address] [facility] [address] [place] [address] PCP - General Internal Medicine 05/05/20 Jitendra Navarro MD Consulting Physician Neurology 03/23/16 04/24/24 Angelica Laughlin MD #[address] [phone] Consulting Physician Otolaryngology 04/01/25 documented as of this encounter
--- OUTSIDE RECORDS SUMMARY | 2025-04-07 10:14 | XMS_ITS | Encounter Summary ---
Author Organization [facility] Address [address] [place] [address] Phone Care Team Providers Care Engineer System Administrator Name Role Phone Jitendra Navarro MD Unavailable Guillermo Burnette MD Primary Care Provider Angelica Laughlin MD Unavailable [phone] Encounter Details Date Type Department Care Team (Late st Contact Info) Description 11/23/2021 [facility] [address] [place] [phone] Cornell Ge MD 4 [facility] [address] [place] [address] Encounter for screening for COVID-19 Social History [...] Throat - Mohit [address] [place] [phone] Angelica Laughlin MD #2 [facility] [address] [place] [phone] documented as of this encounter Procedures Procedure Name Priority Date/Time Associated Diagnosis Comments SARS-COV-2 BY MOLECULAR Routine 11/23/2021 8:15 AM CDT Encounter for screening for COVID-19 documented in this encounter Results * (ABNORMAL) SARS-COV-2 BY MOLECULAR (11/23/2021 8:15 AM CDT) SARSCOV2 DETECTED( A) (Referenc e Range for this test is Not Detected) [facility]ERMOF[facility] FAST DX 11/24/2021 6:49 AM CDT [facility] Comment:This test was perfor med by a RT-PCR method. Other Non-Phlebotomy Collection / Unknown 11/23/2021 8:15 AM CDT 11/23/2021 1:05 PM CDT Narrative [facility] - 11/24/2021 6:49 AM CDT Authorized Fact Sheets about this test for providers and patients are available at: https://www.fda.gov/medical-devices/noacwpvzo-tudajrsvku-ovcqjtv-devices/emergen -us e-authorizations us Cornell Ge MD MICROBIOLOGY - GENERAL ORDERAB LES Final Result Performing Organization Address City/State/[facility] Co de Phone Number [facility] [address] [place] [address], documented in this encounter Visit Diagnoses Diagnosis Encounter for screening for COVID-19 documented in this encounter Additional Health Concerns Infection Onset Date Last Indicated Resolved Time COVID - 19 10/19/2021 11/23/2021 11/24/2021 6:49 AM CDT COVID - 19 Confirmed 11/23/2021 11/23/2021 022 12:16 AM CDT COVID - 19 02/22/2022 03/08/2022 03/18/2022 12:1 6 AM CDT documented as of this encounter Care Teams Engineer System Administrator Relationship Specialty Start Date End Date Guillermo Burnette MD [address] [place] [address] PCP - General Internal Medicine 05/05/20 Jitendra Navarro MD Consulting Physician Neurology 03/23/16 04/24/24 Angelica Laughlin MD #[address] [phone] Consulting Physician Otolaryngology 04/01/25 documented as of this encounter
--- OUTSIDE RECORDS SUMMARY | 2025-04-07 10:14 | XMS_ITS | Encounter Summary ---
Author Organization [facility] Address [address] [place] [address] Phone Care Team Providers Care Silviculture Forester Name Role Phone Jitendra Navarro MD Unavailable [phone] Guillermo Burnette MD Primary Care Provider Angelica Laughlin MD Unavailable [phone] Encounter Details Date Type Department Care Team (Late st Contact Info) Description 03/01/2022 [facility] [address] [place] [phone] Cornell Ge MD 4 [facility] [address] [place] [address] Encounter for screening for COVID-19 Social History [...] Description 09/30/2025 10:30 AM CDT Office Visit [facility] - Ear, Nose & Throat - Mohit [address] [place] [phone] Angelica Laughlin MD #2 [facility] [address] [place] [phone] documented as of this encounter Procedures Procedure Name Priority Date/Time Associated Diagnosis Comments SARS-COV-2 BY MOLECULAR Routine 03/01/2022 7:47 AM CDT Encounter for screening for COVID-19 documented in this encounter Results * SARS-COV-2 BY MOLECULAR (03/01/2022 7:47 AM CDT) SARSCOV2 NOT DETECTED (Referen ce Range for this test is Not Detected ) [facility]MOF[facility] FAST DX 03/01/2022 6:16 PM CDT [facility] Comment:This test was perfor med by a RT-PCR method. Other COVID 19 Collection / Unknown 03/01/2022 7:47 AM CDT 03/01/2022 9:29 AM CDT Narrative [facility] - 03/01/2022 6:16 PM CDT Authorized Fact Sheets about this test for providers and patients are available at: https://www.fda.gov/medical-devices/rjlwshgrw-fqmioguzsq-ihujqgo-devices/emergen cy-us e-authorizations us Cornell Ge MD MICROBIOLOGY - GENERAL ORDERAB LES Final Result [facility] [address] [place] [address], documented in this encounter Visit Diagnoses Diagnosis Encounter for screening for COVID-19 documented in this encounter Additional Health Concerns Infection Onset Date Last Indicated Resolved Time COVID - 19 02/22/2022 03/08/2022 03/18/2022 12:1 6 AM CDT documented as of this encounter Care Teams Silviculture Forester Relationship Specialty Start Date End Date Guillermo Burnette MD [address] [place] [address] PCP - General Internal Medicine 05/05/20 Jitendra Navarro MD Consulting Physician Neurology 03/23/16 04/24/24 Angelica Laughlin MD #2 [facility] [place] [address] [phone] Consulting Physician Otolaryngology 04/01/25 documented as of this encounter
== END 2025-04-07 09:09 | disposition home or self-care (01) ==
LOC: ANHBWCAUD 09:13
DX: H90.3 Sensorineural hearing loss, bilateral (principal); H74.8X3 Other specified disorders of middle ear and mastoid, bilateral
CPT/HCPCS: 92557; 92567